=== PATIENT | female | born 1955 | race Caucasian/White ===

== ENCOUNTER 2017-10-08 00:51 | Inpatient (IN) | payer MEDICARE ==
[2017-10-08] MEDS ORDERED: METHYLPREDNISOLONE INJ 125 MG/2 ML SDV ONE (01:47)
[2017-10-08] MEDS ORDERED: ALBUTEROL SULFATE 0.083% NEB 2.5 MG/3 ML AMPUL NEB ONE ×2 (01:48→01:58)
[2017-10-08] MEDS ORDERED: MAGNESIUM SULFATE/D5W 2 GM/200 ML RTUPB IV ONE (01:48)
[2017-10-08] MEDS ORDERED: METHYLPREDNISOLONE INJ 125 MG/2 ML SDV IV ONE (01:51)
[2017-10-08] MEDS ORDERED: IPRATROPIUM/ALBUTEROL 0.5-2.5 MG/3 ML AMPUL NEB ONE (01:51)
--- NOTE | 2017-10-08 01:58 | ER Document Report ---
ED General - General Chief Complaint: Breathing Difficulty Stated Complaint: SHORTNESS OF BREATH Time Seen by Provider: 10/08/17 01:20 Notes: Patient is a 62-year-old female with a past medical history of asthma, no prior hospitalizations or intubations, who presents with 1 week of progressive worsening shortness of breath became much worse in the last 24 hours. Patient states she has been using her home nebulizers with only minimal improvement of her symptoms. She states any form of exertion worsens her symptoms. She states this feels very similar to prior asthma exacerbations although her at the bedside states "you have never had one this bad before". Patient does report that for the past 1 week she has had a dry, nonproductive cough and has had multiple sick contacts with viral illnesses. She has not seen a primary care doctor regarding today's concerns. TRAVEL OUTSIDE OF THE [place] IN LAST 30 DAYS: No - Related Data Allergies/Adverse Reactions: amoxicillin trihydrate [From Augmentin] Allergy (Verified 01/13/16 19:58) Potassium Clavulanate * [From Augmentin] Allergy (Verified 01/13/16 19:58) Past Medical History - General Information source: Patient - Social History Smoking Status: Current Every Day Smoker Frequency of alcohol use: None Drug Abuse: None Lives with: Spouse/Significant other Family History: Reviewed & Not Pertinent - Past Medical History Cardiac Medical History: Reports: Hx Heart Attack Pulmonary Medical History: Reports: Hx Asthma GI Medical History: Reports: Hx Gastritis Musculoskeltal Medical History: Reports Hx Arthritis, Reports Hx Musculoskeletal Deformity, Reports Hx Musculoskeletal Trauma Psychiatric Medical History: Reports: Hx Anxiety Past Surgical History: Reports: Hx Appendectomy, Hx Section - 3, Hx Cholecystectomy, Hx Gastric Bypass Surgery, Hx Orthopedic Surgery - back x4 carpal tunnel bilaterally - Immunizations Hx Diphtheria, Pertussis, Tetanus Vaccination: No Review of Systems - Review of Systems Notes: Constitutional: Negative for fever. HENT: Negative for sore throat. Eyes: Negative for visual changes. Cardiovascular: Negative for chest pain. Respiratory: Positive for shortness of breath. Gastrointestinal: Negative for abdominal pain, vomiting or diarrhea. Genitourinary: Negative for dysuria. Musculoskeletal: Negative for back pain. Skin: Negative for rash. Neurological: Negative for headaches, weakness or numbness. 10 point ROS negative except as marked above and in HPI. Physical Exam - Vital signs Vitals: Temp Pulse Resp BP Pulse Ox 97.5 F 103 H 20 136/89 H 91 L 10/08/17 01:05 10/08/17 01:05 10/08/17 01:05 10/08/17 01:05 10/08/17 01:05 Interpretation: Tachycardic, Hypoxic, Tachypneic Notes: PHYSICAL EXAMINATION: GENERAL: Appears uncomfortable, breathing with pursed lips, in moderate to severe respiratory distress HEAD: Atraumatic, normocephalic. EYES: Pupils equal round and reactive to light, extraocular movements intact, sclera anicteric, conjunctiva are normal. ENT: nares patent, oropharynx clear without exudates. Dry mucous membranes. NECK: Normal range of motion, supple without lymphadenopathy LUNGS: Diminished air movement in all lung new. Prolonged expiratory phase with associated diffuse expiratory wheezing. Patient has intercostal retractions, breathing approximately 20 breaths per minute. She is unable to speak more than 2 words a single sentence without requiring additional breath. HEART: Regular tachycardia without murmurs ABDOMEN: Soft, nontender, normoactive bowel sounds. No guarding, no rebound. No masses appreciated. EXTREMITIES: Normal range of motion, no pitting or edema. No cyanosis. NEUROLOGICAL: No focal neurological deficits. Moves all extremities spontaneously and on command. PSYCH: Somewhat anxious SKIN: Warm, Dry, normal turgor, no rashes or lesions noted. Course - Re-evaluation Re-evalutation: 10/08/17 01:54 Patient presents in moderate respiratory distress, only able to speak in 2 word sentences, extremely tight on lung examination with prolonged expiratory wheezing in all lung new. She is hypoxemic requiring segmental oxygen on initial presentation. She was immediately placed on continuous nebulizers, and IV is established magnesium and steroids were administered. A stat portable chest x-ray will be obtained. She has been placed on continuous cardiac catheterization technician. Patient is critically ill require frequent reassessments. 10/08/17 02:48 Patient's work of breathing is somewhat improved as she continues on nebulizers at this time. She remains tight with prolonged expiratory wheezing in all lung new. She is now able to speak at least 3-4 word sentences. Continues to be oxygen dependent. Will continue to monitor closely 10/08/17 03:27 Patient states that she is beginning to feel even worse, her saturations continue to hang in the low 90s to upper 80s on 2-3 L by nasal cannula. Work of breathing remains elevated. At this point will transition to BiPAP with continuous in-line nebulizers. 10/08/17 03:35 I discussed this case with Dr. Murillo who is agreed to admit the patient. - Vital Signs Vital signs: Temp Pulse Resp BP Pulse Ox 97.5 F 103 H 21 H 133/92 H 95 10/08/17 01:05 10/08/17 01:05 10/08/17 02:01 10/08/17 02:01 10/08/17 02:01 - Laboratory Result Diagrams: 10/08/17 02:19 10/08/17 02:19 Laboratory results interpreted by me: 10/08/17 10/08/17 02:19 02:19 WBC 11.2 H RDW 14.4 H BUN 23 H Creatinine 0.48 L Glucose 132 H - Diagnostic Test Radiology reviewed: Image reviewed, Reports reviewed Critical Care Note - Critical Care Note Total time excluding time spent on procedures (mins): 37 Comments: Critical care time spent obtaining history from patient or surrogate, discussions with consultants, development of treatment plan with patient or surrogate, evaluation of patient's response to treatment, examination of patient , ordering and performing treatments and interventions, ordering and review of laboratory studies, re-evaluation of patient's condition, ordering and review of radiographic studies and review of old charts Discharge - Discharge Clinical Impression: Respiratory distress Asthma exacerbation Qualifiers: Asthma severity: severe Asthma persistence: persistent Qualified Code(s): J45.51 - Severe persistent asthma with (acute) exacerbation Condition: Fair Disposition: ADMITTED INPATIENT Admitting Provider: Rogelio Murillo Unit Admitted: IMCU Referrals: ZULMA ESTRADA PA-C [Primary Care Provider] - Follow up as needed
[2017-10-08] MEDS ORDERED: MAGNESIUM SULFATE/D5W 1 GM/100 ML RTUPB IV SCH (02:00)
[2017-10-08 02:36] LABS: ABSOLUTE BASOPHILS # (AUTO) 0.1 10^3/uL (0.0-0.2); ABSOLUTE EOSINOPHILS # (AUTO) 0.4 10^3/uL (0.0-0.6); ABSOLUTE LYMPHOCYTES (AUTO) 1.8 10^3/uL (0.5-4.7); ABSOLUTE MONOCYTES (AUTO) 0.8 10^3/uL (0.1-1.4); ABSOLUTE NEUT (AUTO) 8.1 10^3/uL (1.7-8.2); BASOPHILS % (AUTO) 0.7 % (0-2); EOSINOPHILS % (AUTO) 3.4 % (0-6); HEMOGLOBIN 12.1 g/dL (12.0-15.5); HGB HCT DIFFERENCE 0.3; LYMPHOCYTES % (AUTO) 16.5 % (13-45); MEAN CORPUSCULAR HEMOGLOBIN 29.6 pg (27.0-33.4); MEAN CORPUSCULAR HGB CONC 33.7 g/dL (32.0-36.0); MEAN CORPUSCULAR VOLUME 88 fl (80-97); MONOCYTES % (AUTO) 6.7 % (3-13); RED CELL DISTRIBUTION WIDTH 14.4 % (11.5-14.0); SEGMENTED NEUTROPHILS % (AUTO) 72.7 % (42-78); WHITE BLOOD COUNT 11.2 10^3/uL (4.0-10.5)
[2017-10-08 02:44] LABS: ANION GAP 15 (5-19); BLOOD UREA NITROGEN 23 mg/dL (7-20); CALCIUM 9.1 mg/dL (8.4-10.2); CARBON DIOXIDE 23 mmol/L (22-30); CHLORIDE 104 mmol/L (98-107); CREATININE RESULT 0.48 mg/dL (0.52-1.25); GLUCOSE 132 mg/dL (75-110); POTASSIUM 4.4 mmol/L (3.6-5.0); SODIUM 141.8 mmol/L (137-145)
--- NOTE | 2017-10-08 03:07 | RADIOLOGY REPORT (SQ) ---
EXAM DESCRIPTION: CHEST SINGLE VIEW COMPLETED DATE/TIME: 10/08/2017 2:54 am REASON FOR STUDY: sob COMPARISON: None. EXAM PARAMETERS: NUMBER OF VIEWS: One view. TECHNIQUE: Single frontal radiographic view of the chest acquired. RADIATION DOSE: NA LIMITATIONS: None. FINDINGS: LUNGS AND PLEURA: No opacities, masses or pneumothorax. No pleural effusion. Prominent in terstitium. MEDIASTINUM AND HILAR STRUCTURES: No masses. Contour normal. HEART AND VASCULAR STRUCTURES: Heart normal in size. Normal vasculature. BONES: No acute findings. HARDWARE: Upper abdominal clips. 10s leads along the midline of the lower thorax. OTHER: No other significant finding. IMPRESSION: No acute cardiopulmonary findings. TECHNICAL DOCUMENTATION: JOB ID: [id number] [employer]- All Rights Reserved
[2017-10-08 03:31] LABS: VENOUS BLOOD BASE EXCESS -0.9 mmol/L; VENOUS BLOOD HCO3 25.4 mmol/L (20-32); VENOUS BLOOD PCO2 48.7 mmHg (35-63); VENOUS BLOOD PH 7.34 (7.30-7.42)
[2017-10-08] MEDS ORDERED: ONDANSETRON HCL INJ/PF 4 MG/2 ML SDV IV PRN (03:34)
[2017-10-08] MEDS ORDERED: IPRATROPIUM/ALBUTEROL 0.5-2.5 MG/3 ML AMPUL NEB PRN (03:34)
[2017-10-08] MEDS ORDERED: MAG HYDROX/AL HYDROX/SIMETH SUSP 30 ML UDCUP PO PRN (03:34)
[2017-10-08] MEDS ORDERED: CHLORPHENIRAMINE MALEATE 4 MG TABLET PO ONE (03:34)
[2017-10-08] MEDS ORDERED: FLUTICASONE NASAL SPRAY 50 MCG/SPRY 120 SPRAY/16 GM NASL ONE (04:15)
--- NOTE | 2017-10-08 05:25 | PDOC H&P ---
History of Present Illness Admission Date/PCP: 10/08/17 03:46 ZULMA ESTRADA PA-C Patient complains of: Shortness of breath and wheeze History of Present Illness: RONALD CROCKETT is a 62 year old female with a past medical history of coronary artery disease, COPD, asthma, Tobacco Dependence, depression and chronic pain. Presents with 2 days of rhinorrhea and 12 hours of severe asthma exacerbation not alleviated by home medications prompting evaluation emergency room. She is unable to complete sentences without coughing and wheezing is audible at bedside. She states cold weather is a trigger of her asthma, denies chest pain nausea vomiting. She admits previous hospitalization for asthma but denies intubation and/or recent change in medication regimen. Past Medical History Cardiac Medical History: Reports: Myocardial Infarction Pulmonary Medical History: Reports: Asthma, Chronic Obstructive Pulmonary Disease (COPD) Musculoskeltal Medical History: Reports: Arthritis Psychiatric Medical History: Reports: Depression, General Anxiety Disorder, Tobacco Dependency Past Surgical History Past Surgical History: Reports: Appendectomy, Section - 3, Cholecystectomy, Gastric Bypass Surgery, Orthopedic Surgery - back x4 carpal tunnel bilaterally Social History Information Source: Patient Lives with: Spouse/Significant other Smoking Status: Current Every Day Smoker Cigarettes Packs Per Day: 1 Last Time Smoked: 45 Frequency of Alcohol Use: None Drugs: None - Advance Directive Resuscitation Status: Full Code Family History Family History: CAD, COPD Parental Family History Reviewed: Yes Children Family History Reviewed: Yes Sibling(s) Family History Reviewed.: Yes Medication/Allergy Home Medications: Famotidine [Pepcid 20 mg Tablet] 20 mg PO BID #12 tablet 08/21/15 Hydroxyzine Pamoate [Vistaril 50 mg Capsule] 50 mg PO Q6HP PRN #30 capsule 08/21 Permethrin [Elimite] 60 gm TP ONCE PRN #2 cream.gm. 08/21/15 Prednisone [Sterapred Ds] 1 pkg PO ASDIR PRN 12 Days tab.ds.pk 08/21/15 Prednisone [Deltasone 10 mg Tablet] 10 mg PO ASDIR PRN #21 tablet 01/13/16 Allergies/Adverse Reactions: amoxicillin trihydrate [From Augmentin] Allergy (Verified 01/13/16 19:58) Potassium Clavulanate * [From Augmentin] Allergy (Verified 01/13/16 19:58) Review of Systems Constitutional: PRESENT: as per HPI Eyes: ABSENT: visual disturbances Ears: ABSENT: hearing changes Nose, Mouth, and Throat: PRESENT: other - Rhinorrhea Cardiovascular: ABSENT: chest pain, dyspnea on exertion, edema, orthropnea, palpitations Respiratory: PRESENT: as per HPI, cough, dyspnea. ABSENT: sputum Gastrointestinal: ABSENT: abdominal pain, constipation, diarrhea, hematemesis, hematochezia, nausea, vomiting Genitourinary: ABSENT: dysuria, hematuria Musculoskeletal: ABSENT: joint swelling Integumentary: ABSENT: rash, wounds Neurological: ABSENT: abnormal gait, abnormal speech, confusion, dizziness, focal weakness, syncope Psychiatric: PRESENT: anxiety, depression - Grief following recent of father. ABSENT: homidical ideation, suicidal ideation Endocrine: ABSENT: cold intolerance, heat intolerance, polydipsia, polyuria Hematologic/Lymphatic: ABSENT: easy bleeding, easy bruising Physical Exam Vital Signs: Temp Pulse Resp BP Pulse Ox 97.5 F 103 H 23 H 134/79 H 96 10/08/17 01:05 10/08/17 01:05 10/08/17 04:01 10/08/17 04:00 10/08/17 04:01 General appearance: PRESENT: cooperative, severe distress, thin Head exam: PRESENT: atraumatic, normocephalic Eye exam: PRESENT: conjunctiva pink, EOMI, PERRLA. ABSENT: scleral icterus Ear exam: PRESENT: normal external ear exam Mouth exam: PRESENT: moist, tongue midline Neck exam: ABSENT: carotid bruit, JVD, lymphadenopathy, thyromegaly Respiratory exam: PRESENT: accessory muscle use, retraction, symmetrical, tachypnea, wheezes. ABSENT: rhonchi, stridor Cardiovascular exam: PRESENT: +S1, +S2, tachycardia Pulses: PRESENT: normal dorsalis pedis pul Vascular exam: PRESENT: normal capillary refill GI/Abdominal exam: PRESENT: normal bowel sounds, soft. ABSENT: distended, guarding, mass, organolmegaly, rebound, tenderness Rectal exam: PRESENT: deferred Extremities exam: PRESENT: full ROM. ABSENT: calf tenderness, clubbing, pedal edema Neurological exam: PRESENT: alert, awake, oriented to person, oriented to place , oriented to time, oriented to situation, CN II-XII grossly intact. ABSENT: motor sensory deficit Psychiatric exam: PRESENT: appropriate affect, normal mood. ABSENT: homicidal ideation, suicidal ideation Skin exam: PRESENT: dry, intact, warm. ABSENT: cyanosis, rash Results Impressions: Chest X-Ray 10/08/17 01:52 IMPRESSION: No acute cardiopulmonary findings. Assessment & Plan - Diagnosis (1) Asthma exacerbation Qualifiers: Asthma severity: severe Asthma persistence: persistent Qualified Code(s) : J45.51 - Severe persistent asthma with (acute) exacerbation Is this a current diagnosis for this admission?: Yes Plan: IMCU admission, consider ABG continue Solu-Medrol, albuterol and Atrovent. Follow-up peak flow (2) Acute bronchitis Is this a current diagnosis for this admission?: Yes Plan: Flutter valve and empiric antibiotics (3) Tobacco dependence Is this a current diagnosis for this admission?: Yes Plan: Tobacco Dependence patient received tobacco cessation counseling and offered nicotine replacement options (4) Respiratory distress Is this a current diagnosis for this admission?: Yes Plan: Secondary to #1 supplemental oxygen and BiPAP. - Time Time Spent: 30 to 50 Minutes - Inpatient Certification Medical Necessity: Need Close Monitoring Due to Risk of Patient Decompensation
[2017-10-08] MEDS ORDERED: LEVOFLOXACIN 750 MG/D5W RTU 750 MG/150 ML RTUPB IV ONE (06:00)
[2017-10-08] MEDS: HEPARIN SOD (PORCINE) 5,000 UNIT/ML 1 ML SYRINGE SUBCUT SCH ×3 (08:22→22:30)
[2017-10-08] MEDS: METHYLPREDNISOLONE INJ 125 MG/2 ML SDV IV SCH ×3 (08:22→22:30)
[2017-10-08] MEDS: LANSOPRAZOLE 30 MG TAB.RAP.DR PO SCH ×2 (08:23→17:32)
[2017-10-08] MEDS: IPRATROPIUM/ALBUTEROL 0.5-2.5 MG/3 ML AMPUL NEB SCH ×3 (09:31→19:35)
[2017-10-08] MEDS: DOCUSATE SODIUM 100 MG CAPSULE PO SCH ×2 (10:21→17:30)
[2017-10-08] MEDS: FLUTICASONE NASAL SPRAY 50 MCG/SPRY 120 SPRAY/16 GM NASL SCH ×2 (10:21→22:30)
[2017-10-08] MEDS ORDERED: INFLUENZA ADLT QUAD (36MOS+) 2017-18 VAC 0.5 ML SYR IM PRN (14:36)
[2017-10-08] MEDS: ACETAMINOPHEN 325 MG TABLET PO PRN ×2 (17:30→22:35)
--- NOTE | 2017-10-08 21:11 | EKG REPORT ---
SEVERITY:- OTHERWISE NORMAL ECG - SINUS TACHYCARDIA : Confirmed by: Maria Antonia Ruboi MD 08-Oct-2017 21:10:33
[2017-10-09] MEDS: IPRATROPIUM/ALBUTEROL 0.5-2.5 MG/3 ML AMPUL NEB SCH ×4 (02:36→20:49)
[2017-10-09] MEDS: ACETAMINOPHEN 325 MG TABLET PO PRN ×3 (04:50→16:36)
[2017-10-09] MEDS: HEPARIN SOD (PORCINE) 5,000 UNIT/ML 1 ML SYRINGE SUBCUT SCH ×3 (05:36→22:05)
[2017-10-09] MEDS: METHYLPREDNISOLONE INJ 125 MG/2 ML SDV IV SCH ×3 (05:36→22:05)
[2017-10-09] MEDS: LANSOPRAZOLE 30 MG TAB.RAP.DR PO SCH ×2 (05:36→16:37)
[2017-10-09] MEDS: FLUTICASONE NASAL SPRAY 50 MCG/SPRY 120 SPRAY/16 GM NASL SCH ×2 (09:36→22:05)
[2017-10-09] MEDS: LEVOFLOXACIN 750 MG/D5W RTU 750 MG/150 ML RTUPB IV SCH (09:36)
[2017-10-09] MEDS: DOCUSATE SODIUM 100 MG CAPSULE PO SCH ×2 (09:37→17:36)
[2017-10-09] MEDS: HYDROCODONE/ACETAMINOPHEN 5-325 MG TABLET PO PRN ×3 (11:16→23:26)
[2017-10-09] MEDS: BENZONATATE 100 MG CAPSULE PO SCH ×2 (13:44→22:05)
--- NOTE | 2017-10-09 16:04 | PDOC PROGRESS REPORT ---
Subjective Progress Note for:: 10/09/17 Subjective:: Overall, she is feeling better. She still is short of breath and wheezy. She has a nonproductive cough as well. Physical Exam Vital Signs: Temp Pulse Resp BP Pulse Ox 97.9 F 91 18 122/84 96 10/09/17 11:36 10/09/17 14:00 10/09/17 13:30 10/09/17 11:36 10/09/17 11:36 Intake & Output 10/08/17 10/09/17 10/10/17 06:59 06:59 06:59 Intake Total 10 1342 237 Output Total 0 500 Balance 10 842 237 Weight 78.1 kg 76.4 kg General appearance: PRESENT: no acute distress, cooperative, well-developed, well-nourished Head exam: PRESENT: atraumatic, normocephalic Eye exam: PRESENT: conjunctiva pink, EOMI, PERRLA. ABSENT: scleral icterus Respiratory exam: PRESENT: unlabored, wheezes. ABSENT: accessory muscle use Cardiovascular exam: PRESENT: RRR. ABSENT: diastolic murmur, rubs, systolic murmur GI/Abdominal exam: PRESENT: normal bowel sounds, soft. ABSENT: distended, guarding, mass, organolmegaly, rebound, tenderness Neurological exam: PRESENT: alert, awake, oriented to person, oriented to place , oriented to time, oriented to situation, CN II-XII grossly intact. ABSENT: motor sensory deficit Psychiatric exam: PRESENT: appropriate affect, normal mood. ABSENT: homicidal ideation, suicidal ideation Skin exam: PRESENT: dry, intact, warm. ABSENT: cyanosis, rash Results Laboratory Results: Labs- All tests 24 hr 10/09/17 11:38 POC Glucose 128 H Impressions: Chest X-Ray 10/08/17 01:52 IMPRESSION: No acute cardiopulmonary findings. Assessment & Plan - Diagnosis (1) Asthma exacerbation Qualifiers: Asthma severity: severe Asthma persistence: persistent Qualified Code(s) : J45.51 - Severe persistent asthma with (acute) exacerbation Is this a current diagnosis for this admission?: Yes Plan: She has shown improvement in the last 24 hours. Continue steroids, nebs, and oxygen. Anticipate discharge in the next 2-3 days. (2) Tobacco dependence Is this a current diagnosis for this admission?: Yes Plan: She was offered nicotine replacement. - Time Time Spent with patient: 15-24 minutes Medications reviewed and adjusted accordingly: Yes Anticipated discharge: Home - Inpatient Certification Medical Necessity: Failure to Improve With Outpatient Therapy
[2017-10-10] MEDS: IPRATROPIUM/ALBUTEROL 0.5-2.5 MG/3 ML AMPUL NEB SCH ×4 (01:53→20:51)
[2017-10-10] MEDS: HYDROCODONE/ACETAMINOPHEN 5-325 MG TABLET PO PRN ×3 (05:43→18:19)
[2017-10-10] MEDS: LANSOPRAZOLE 30 MG TAB.RAP.DR PO SCH ×2 (05:44→17:12)
[2017-10-10] MEDS: BENZONATATE 100 MG CAPSULE PO SCH ×3 (05:44→21:43)
[2017-10-10] MEDS: HEPARIN SOD (PORCINE) 5,000 UNIT/ML 1 ML SYRINGE SUBCUT SCH ×3 (05:44→21:45)
[2017-10-10] MEDS: METHYLPREDNISOLONE INJ 125 MG/2 ML SDV IV SCH ×3 (05:44→21:42)
[2017-10-10] MEDS: DOCUSATE SODIUM 100 MG CAPSULE PO SCH ×2 (09:38→17:12)
[2017-10-10] MEDS: ACETAMINOPHEN 325 MG TABLET PO PRN (09:40)
[2017-10-10] MEDS: LEVOFLOXACIN 750 MG/D5W RTU 750 MG/150 ML RTUPB IV SCH (09:41)
[2017-10-10] MEDS: FLUTICASONE NASAL SPRAY 50 MCG/SPRY 120 SPRAY/16 GM NASL SCH ×2 (09:41→21:47)
--- NOTE | 2017-10-10 14:03 | PROGRESS NOTE E ---
Progress Note NAME: RONALD CROCKETT : 1955 AGE: 62Y DATE: 10/10/2017 ROOM: 328 SUBJECTIVE: The patient is a 62-year-old female who has a past medical history of asthma, admitted with acute hypoxic respiratory failure secondary to asthma exacerbation. She is feeling better but still continued to have a cough. OBJECTIVE: GENERAL: The patient is lying in bed, not in distress. VITAL SIGNS: Temperature 97.8, heart rate 75, respiratory rate 18, blood pressure 124/67, saturation 95% room air. HEENT: Head normocephalic, atraumatic. Pupils round, reactive to light and accommodation bilaterally. Extraocular movements intact. Ears: Tympanic membranes intact bilaterally. No discharge from the ear. No discharge from the nose. NECK: Supple, no increased JVD, no thyromegaly, no lymphadenopathy. CARDIOVASCULAR: Normal S1, S2. Regular rate and rhythm. No murmur, no gallops. RESPIRATORY: Bilateral crackles and wheezing. ABDOMEN: Soft, nontender. MUSCULOSKELETAL: No edema. NEUROLOGIC: Awake, alert. SKIN: No rash. LABORATORY DATA: White blood count 11, hemoglobin 12. Sodium 140, potassium 4.4, creatinine 0.5. ASSESSMENT: 1. ASTHMA EXACERBATION. 2. TOBACCO DEPENDENCE. PLAN: We will continue oxygen, continue nebulizer. DISPOSITION: We will discharge improved 48 hours. DICTATING PHYSICIAN: WANDY LOPEZ M.D. [id number] PHY#: [id number] ID: [id number] JOB#: [id number] ACCT: [id number] cc: >
[2017-10-10] MEDS: GUAIFENESIN SYRP 200 MG/10 ML UDC PO PRN ×2 (17:12→21:47)
[2017-10-11] MEDS: HYDROCODONE/ACETAMINOPHEN 5-325 MG TABLET PO PRN ×2 (01:48→18:33)
[2017-10-11] MEDS: IPRATROPIUM/ALBUTEROL 0.5-2.5 MG/3 ML AMPUL NEB SCH ×4 (02:07→20:18)
[2017-10-11] MEDS: BENZONATATE 100 MG CAPSULE PO SCH ×3 (06:09→21:57)
[2017-10-11] MEDS: METHYLPREDNISOLONE INJ 125 MG/2 ML SDV IV SCH ×3 (06:10→21:58)
[2017-10-11] MEDS: LANSOPRAZOLE 30 MG TAB.RAP.DR PO SCH ×2 (06:10→18:34)
[2017-10-11] MEDS: HEPARIN SOD (PORCINE) 5,000 UNIT/ML 1 ML SYRINGE SUBCUT SCH ×3 (06:10→21:59)
--- NOTE | 2017-10-11 09:28 | PROGRESS NOTE E ---
Progress Note NAME: RONALD CROCKETT : 1955 AGE: 62Y DATE: 10/11/2017 ROOM: 328 SUBJECTIVE: The patient is a 62-year-old female who has a past medical history significant for asthma, admitted with acute hypoxic respiratory failure secondary to asthma exacerbation. She is feeling better and continues to have a cough. OBJECTIVE: GENERAL: The patient lying in bed comfortable. Not in distress. VITALS SIGNS: Temperature 98.1, heart rate 75, blood pressure 147/86, respiratory rate is 18, saturation is 93% on room air. HEENT: Head normocephalic, atraumatic. Pupils round and reactive to light and accommodation bilaterally. Extraocular movements intact. Ears: Tympanic membranes intact bilaterally. No discharge from the ears. No discharge from the nose. NECK: Supple. No increased JVD. No thyromegaly. No lymphadenopathy. CARDIOVASCULAR: Normal S1, S2. Regular rate and rhythm. No murmur. No gallop. RESPIRATORY: Bilateral wheezing. ABDOMEN: Soft and nontender. MUSCULOSKELETAL: No edema. NEUROLOGIC: Awake and alert. LABORATORY: White blood count 11.2, hemoglobin 12. Sodium 141, potassium 4.4, creatinine 0.4. ASSESSMENT: 1. ASTHMA EXACERBATION. 2. ACUTE HYPOXIC RESPIRATORY FAILURE. 3. TOBACCO DEPENDENCE. PLAN: Continue current treatment with nebulizer and steroids. Patient continues to have wheezing. MEDICAL NECESSITY: Patient is still wheezing and had difficulty breathing with minimal activity. We will keep her another day. DICTATING PHYSICIAN: WANDY LOPEZ M.D. [id number] PHY#: [id number] ID: [id number] JOB#: [id number] ACCT: [id number] cc: >
[2017-10-11] MEDS: LEVOFLOXACIN 750 MG TABLET PO SCH (10:14)
[2017-10-11] MEDS: DOCUSATE SODIUM 100 MG CAPSULE PO SCH ×2 (10:15→18:34)
[2017-10-11] MEDS: FLUTICASONE NASAL SPRAY 50 MCG/SPRY 120 SPRAY/16 GM NASL SCH ×2 (10:15→21:58)
[2017-10-11] MEDS: GUAIFENESIN SYRP 200 MG/10 ML UDC PO PRN (10:15)
[2017-10-12] MEDS: HYDROCODONE/ACETAMINOPHEN 5-325 MG TABLET PO PRN ×2 (00:57→08:33)
[2017-10-12] MEDS: IPRATROPIUM/ALBUTEROL 0.5-2.5 MG/3 ML AMPUL NEB SCH ×2 (02:00→08:34)
[2017-10-12] MEDS: LANSOPRAZOLE 30 MG TAB.RAP.DR PO SCH (06:43)
[2017-10-12] MEDS: METHYLPREDNISOLONE INJ 125 MG/2 ML SDV IV SCH (06:43)
[2017-10-12] MEDS: BENZONATATE 100 MG CAPSULE PO SCH (06:44)
[2017-10-12] MEDS: HEPARIN SOD (PORCINE) 5,000 UNIT/ML 1 ML SYRINGE SUBCUT SCH (06:44)
[2017-10-12 08:24] VITALS: BP 144/87
[2017-10-12] MEDS: FLUTICASONE NASAL SPRAY 50 MCG/SPRY 120 SPRAY/16 GM NASL SCH (08:43)
[2017-10-12] MEDS: LEVOFLOXACIN 750 MG TABLET PO SCH (08:43)
[2017-10-12] MEDS: DOCUSATE SODIUM 100 MG CAPSULE PO SCH (08:43)
--- NOTE | 2017-10-12 09:28 | DISCHARGE SUMMARY E ---
Discharge Summary NAME: RONALD CROCKETT : 1955 AGE: 62Y ADMITTED: 10/08/2017 DISCHARGED: 10/12/2017 ADMISSION DIAGNOSES: 1. Asthma exacerbation. 2. Acute bronchitis. 3. Tobacco dependence. 4. Respiratory distress. DISCHARGE DIAGNOSES: 1. Asthma exacerbation, resolved. 2. Bronchitis. 3. Tobacco dependence. 4. Respiratory distress, resolved. HOSPITAL COURSE: The patient is a pleasant 62-year-old female who had a past medical history of asthma and she also had tobacco abuse. The patient has depression. She was admitted with 2 days of rhinorrhea prior to the admission and when she was admitted to the hospital was in respiratory distress and she was wheezing, wheezing not audible at bedside. The patient received inhalers and magnesium sulfate and she improved and admitted to the floor. On the floor, she was on Solu-Medrol IV and antibiotics, Levaquin 750 mg p.o. daily. Today, she is doing much better and she is not wheezing. She is feeling better and less short of breath. The patient is doing much better today and she is not requiring any oxygen and she is saturating in mid-90 in room air and she is stable to be discharged home. PHYSICAL EXAMINATION UPON DISCHARGE: GENERAL: Patient lying in bed, comfortable, not in distress. VITAL SIGNS: Temperature 98.4, heart rate 74, respiratory rate 16, blood pressure 136/89. HEENT: Head: Normocephalic, atraumatic. Pupils round, reactive to light and accommodation bilaterally. Extraocular movements intact. Ears: Tympanic membranes intact bilateral. No discharge from the ears. No discharge from the nose. NECK: Supple. No increased JVD. No thyromegaly. No lymphadenopathy. CARDIOVASCULAR: Normal S1 and S2. RESPIRATORY: Lungs are clear. ABDOMEN: Soft. MUSCULOSKELETAL: No edema. NEUROLOGICAL EXAM: Awake, alert. SKIN: No rash. LABORATORY: White blood count 11.2, hemoglobin 12.1, hematocrit 36. Sodium 141, potassium 4.1, creatinine 0.5. DISCHARGE INSTRUCTIONS: Discharge patient home. DIET: Low-salt diet. ACTIVITY: As tolerated. MEDICATIONS: 1. Calcium and vitamin D 1 tablet twice a day. 2. Albuterol inhaler. 3. Multivitamin once a day. 4. Paxil 10 mg daily. 5. Gabapentin 100 mg twice a day. 6. Prednisone 40 mg tapering. 7. Levaquin 750 mg p.o. daily. TIME SPENT: I spent 35 minutes. DICTATING PHYSICIAN: WANDY LOPEZ M.D. [id number] PHY#: [id number] ID: [id number] JOB#: [id number] ACCT: [id number] cc:Marisa CABA M.D. >
[2017-10-12] MEDS ORDERED: PREDNISONE 20 MG TABLET PO SCH (10:00)
== END 2017-10-12 09:42 | disposition home or self-care (01) | DRG 202 ==
LOC: ER 00:51 → EH 03:46 → 3S 05:49
PROVIDERS: ADMIT Internal Medicine; ATTEND Internal Medicine
PROC: 5A09357 Assistance with Respiratory Ventilation, Less than 24 Consecutive Hours, Continuous Positive Airway Pressure (ICD-10-PCS; principal; 2017-10-08)
PROC: 3E0F73Z Introduction of Anti-inflammatory into Respiratory Tract, Via Natural or Artificial Opening (ICD-10-PCS; 2017-10-08)
DX: J45.51 Severe persistent asthma with (acute) exacerbation (principal); J44.0 Chronic obstructive pulmonary disease with (acute) lower respiratory infection; J20.9 Acute bronchitis, unspecified; I25.10 Atherosclerotic heart disease of native coronary artery without angina pectoris; G89.29 Other chronic pain; R06.03 Acute respiratory distress; R09.02 Hypoxemia; F32.9 Major depressive disorder, single episode, unspecified; M19.90 Unspecified osteoarthritis, unspecified site; F41.1 Generalized anxiety disorder; F17.210 Nicotine dependence, cigarettes, uncomplicated; Z90.49 Acquired absence of other specified parts of digestive tract; Z98.84 Bariatric surgery status; Z82.49 Family history of ischemic heart disease and other diseases of the circulatory system; Z88.0 Allergy status to penicillin; Z88.8 Allergy status to other drugs, medicaments and biological substances; I25.2 Old myocardial infarction
CPT/HCPCS: 36415; 71010; 80048; 82803; 82962; 83880; 84484; 85025; 87040; 93005; 93010; 94640; 94660; 99291; J1644; J1956; J2930; J3475; J7620

== ENCOUNTER 2018-01-20 23:00 | Inpatient (IN) | payer MEDICARE ==
[2018-01-20] MEDS ORDERED: IPRATROPIUM/ALBUTEROL 0.5-2.5 MG/3 ML AMPUL NEB ONE (23:25)
[2018-01-20] MEDS ORDERED: ALBUTEROL SULFATE 0.083% NEB 2.5 MG/3 ML AMPUL NEB ONE (23:25)
--- NOTE | 2018-01-20 23:29 | ER Document Report ---
ED General - General Stated Complaint: DIFFICULTY BREATHING Time Seen by Provider: 01/20/18 23:21 Notes: Patient is a 62-year-old female who presents with complaint of asthma exacerbation. Patient does smoke as well. She says for the last 10 days she has had some difficulty breathing. She is placed on prednisone on January 15 by her primary care doctor. She continued to worsen despite this. Tonight her breathing got really bad and therefore she called any months. When ambulance arrived she was 80% on room air. She does not use oxygen at home. She has been admitted for asthma exacerbations in the past. She has one BiPAP in the past. She denies any fevers. No vomiting. No diarrhea. She has never been on a ventilator. No other complaints at this time. In the a.m. once she received Solu-Medrol as well as 2 DuoNeb treatments. She denies any chest pain. TRAVEL OUTSIDE OF THE [place] IN LAST 30 DAYS: No - Related Data Allergies/Adverse Reactions: amoxicillin trihydrate [From Augmentin] Allergy (Verified 01/13/16 19:58) Potassium Clavulanate * [From Augmentin] Allergy (Verified 01/13/16 19:58) Past Medical History - Social History Smoking Status: Current Every Day Smoker Frequency of alcohol use: None Drug Abuse: None Family History: CAD, COPD - Past Medical History Cardiac Medical History: Reports: Hx Heart Attack Pulmonary Medical History: Reports: Hx Asthma, Hx COPD Renal/ Medical History: Denies: Hx Peritoneal Dialysis GI Medical History: Reports: Hx Gastritis Musculoskeltal Medical History: Reports Hx Arthritis, Reports Hx Musculoskeletal Deformity, Reports Hx Musculoskeletal Trauma Psychiatric Medical History: Reports: Hx Anxiety, Hx Depression Past Surgical History: Reports: Hx Appendectomy, Hx Section - 3, Hx Cholecystectomy, Hx Gastric Bypass Surgery, Hx Orthopedic Surgery - back x4 carpal tunnel bilaterally - Immunizations Hx Diphtheria, Pertussis, Tetanus Vaccination: No Review of Systems - Review of Systems Notes: My Normal Review Basic REVIEW OF SYSTEMS: CONSTITUTIONAL : Denies fever, chills, or sweats. Denies recent illness. EENT: Denies eye, ear, throat, or mouth pain or symptoms. Denies nasal or sinus congestion. CARDIOVASCULAR: Denies chest pain. RESPIRATORY: Occulta breathing and wheezing. GASTROINTESTINAL: Denies abdominal pain. Denies nausea, vomiting, or diarrhea. MUSCULOSKELETAL: Denies neck or back pain or joint pain or swelling. SKIN: Denies rash or skin lesions. NEUROLOGICAL: Denies altered mental status or loss of consciousness. Denies headache. Denies weakness or paralysis or loss of use of either side. Denies problems with gait or speech. Denies sensory or motor loss.SYCHIATRIC: Denies anxiety or stress or depression. ALL OTHER SYSTEMS REVIEWED AND NEGATIVE. Physical Exam - Vital signs Vitals: Resp Pulse Ox 33 H 97 01/20/18 23:08 01/20/18 23:08 - Notes Notes: General Appearance: Well nourished, alert, cooperative, moderate acute distress , no obvious discomfort. Vitals: reviewed, See vital signs table. Head: no swelling or tenderness to the head Eyes: PERRL, EOMI, Conjuctiva clear Mouth: No decreasd moisture Throat: No tonsillar inflammation, No airway obstruction, No lymphadenopathy Neck: Supple, no neck tenderness, No thyromegaly Lungs:diffuse wheezing, No rales, diffuse rhonci, No accessory muscle use, fair air exchange bilaterally. Heart: Tachycardic rate, Regular rythm, No murmur, no rub Abdomen: Normal BS, soft, No rigidity, No abdominal tenderness, No guarding, no rebound, no abdominal masses, no organomegaly Extremities: strength 5/5 in all extremities, good pulses in all extremities, no swelling or tenderness in the extremities, no edema. Skin: warm, dry, appropriate color, no rash Neuro: speech clear, oriented x 3, normal affect, responds appropriately to questions. Course - Re-evaluation Re-evalutation: 01/21/18 00:44 Reevaluation patient is feeling much improved on the BiPAP. Her lung new are still very tight and wheezing. Her tachypnea has improved. Her blood work does show that she has an elevated CO2. Her pH is 97.32 so she is fairly well compensated. I feel the patient needs admission being that she still has very poor lung auscultation and is requiring BiPAP. Patient is agreeable to this. I will contact Dr. Murillo about admission. 01/21/18 00:[address] Murillo who agrees to admit the patient. Dictation of this chart was performed using voice recognition software; therefore, there may be some unintended grammatical errors. - Vital Signs Vital signs: Temp Pulse Resp BP Pulse Ox 19 104/70 98 01/21/18 00:01 01/21/18 00:01 01/21/18 00:01 - Laboratory Result Diagrams: 01/20/18 23:30 01/20/18 23:30 Laboratory results interpreted by me: 01/20/18 01/20/18 01/20/18 23:30 23:30 23:30 WBC 11.1 H MCH 26.6 L RDW 15.7 H Plt Count 471 H VBG pCO2 69.4 H* VBG HCO3 34.8 H Chloride 97 L Carbon Dioxide 32 H Glucose 114 H - EKG Interpretation by Me Additional EKG results interpreted by me: 01/21/18 00:27 EKG is reviewed and interpreted by me. EKG shows sinus rhythm with a rate of [address] segment elevation or depression. No ischemic T-wave inversions. TN interval, QRS duration, QTc intervals are within normal range. Old EKG for comparison is from October 08, 2017. Discharge - Discharge Clinical Impression: Tobacco dependence Asthma exacerbation Qualifiers: Asthma severity: unspecified severity Asthma persistence: unspecified Qualified Code(s): J45.901 - Unspecified asthma with (acute) exacerbation Condition: Stable Disposition: ADMITTED INPATIENT Admitting Provider: Hospitalist Unit Admitted: Telemetry
[2018-01-20 23:48] LABS: ABSOLUTE BASOPHILS # (AUTO) 0.1 10^3/uL (0.0-0.2); ABSOLUTE EOSINOPHILS # (AUTO) 0.1 10^3/uL (0.0-0.6); ABSOLUTE LYMPHOCYTES (AUTO) 3.4 10^3/uL (0.5-4.7); ABSOLUTE MONOCYTES (AUTO) 0.9 10^3/uL (0.1-1.4); ABSOLUTE NEUT (AUTO) 6.7 10^3/uL (1.7-8.2); BASOPHILS % (AUTO) 0.5 % (0-2); EOSINOPHILS % (AUTO) 0.8 % (0-6); HEMATOCRIT 38.8 % (36.0-47.0); HEMOGLOBIN 12.4 g/dL (12.0-15.5); LYMPHOCYTES % (AUTO) 30.1 % (13-45); MEAN CORPUSCULAR HEMOGLOBIN 26.6 pg (27.0-33.4); MEAN CORPUSCULAR VOLUME 83 fl (80-97); MONOCYTES % (AUTO) 8.4 % (3-13); PLATELET COUNT 471 10^3/uL (150-450); RED BLOOD COUNT 4.67 10^6/uL (3.72-5.28); RED CELL DISTRIBUTION WIDTH 15.7 % (11.5-14.0); SEGMENTED NEUTROPHILS % (AUTO) 60.2 % (42-78); TOTAL CELLS COUNTED % (AUTO) 100 %; WHITE BLOOD COUNT 11.1 10^3/uL (4.0-10.5)
[2018-01-20] MEDS: MAGNESIUM SULFATE/D5W 1 GM/100 ML RTUPB IV SCH ×2 (23:51→23:59)
--- NOTE | 2018-01-20 23:52 | RADIOLOGY REPORT (SQ) ---
EXAM DESCRIPTION: CHEST SINGLE VIEW COMPLETED DATE/TIME: 01/20/2018 11:42 pm REASON FOR STUDY: dyspnea COMPARISON: 10/08/2017 EXAM PARAMETERS: NUMBER OF VIEWS: One view. TECHNIQUE: Single frontal radiographic view of the chest acquired. RADIATION DOSE: NA LIMITATIONS: None. FINDINGS: LUNGS AND PLEURA: No acute opacities, masses or pneumothorax. No pleural effusion. MEDIASTINUM AND HILAR STRUCTURES: Stable. HEART AND VASCULAR STRUCTURES: Heart normal in size. Normal vasculature. BONES: No acute findings. HARDWARE: Thoracic stimulator. OTHER: No other significant finding. IMPRESSION: NO ACUTE RADIOGRAPHIC FINDING IN THE CHEST. TECHNICAL DOCUMENTATION: JOB ID: [id number] [id number] 2010 [employer]- All Rights Reserved Reading location - IP/workstation name: [email or web address]
[2018-01-20 23:54] LABS: VENOUS BLOOD BASE EXCESS 6.4 mmol/L; VENOUS BLOOD HCO3 34.8 mmol/L (20-32); VENOUS BLOOD PH 7.32 (7.30-7.42)
[2018-01-20 23:59] LABS: ALANINE AMINOTRANSFERASE 51 U/L (9-52); ALBUMIN 4.7 g/dL (3.5-5.0); ALKALINE PHOSPHATASE 116 U/L (38-126); ANION GAP 11 (5-19); ASPARTATE AMINO TRANSFERASE 23 U/L (14-36); BILIRUBIN,DIRECT 0.2 mg/dL (0.0-0.4); BILIRUBIN,TOTAL 0.2 mg/dL (0.2-1.3); BLOOD UREA NITROGEN 15 mg/dL (7-20); CARBON DIOXIDE 32 mmol/L (22-30); CHLORIDE 97 mmol/L (98-107); GLUCOSE 114 mg/dL (75-110); POTASSIUM 4.7 mmol/L (3.6-5.0); SODIUM 139.7 mmol/L (137-145); TOTAL PROTEIN 7.2 g/dL (6.3-8.2)
[2018-01-21 00:02] LABS: VENOUS BLOOD PCO2 69.4 mmHg (35-63)
[2018-01-21] MEDS ORDERED: HYDROCODONE/ACETAMINOPHEN 7.5-325 MG TABLET PO ONE (00:42)
[2018-01-21] MEDS ORDERED: ALBUTEROL SULFATE 0.083% NEB 2.5 MG/3 ML AMPUL NEB ONE (00:42)
[2018-01-21] MEDS ORDERED: IPRATROPIUM/ALBUTEROL 0.5-2.5 MG/3 ML AMPUL NEB PRN (00:57)
[2018-01-21] MEDS ORDERED: GUAIFENESIN SYRP 200 MG/10 ML UDC PO PRN (00:57)
[2018-01-21] MEDS ORDERED: ACETAMINOPHEN 325 MG TABLET PO PRN (00:57)
[2018-01-21] MEDS ORDERED: LACTULOSE SYRUP 20 GM/30 ML UDCUP PO ONE (01:00)
[2018-01-21] MEDS ORDERED: LEVOFLOXACIN 750 MG/D5W RTU 750 MG/150 ML RTUPB IV ONE (02:00)
[2018-01-21] MEDS: IPRATROPIUM/ALBUTEROL 0.5-2.5 MG/3 ML AMPUL NEB SCH ×4 (02:19→19:49)
[2018-01-21 04:20] LABS: HEMATOCRIT 39.2 % (36.0-47.0); HEMOGLOBIN 12.5 g/dL (12.0-15.5); MEAN CORPUSCULAR HEMOGLOBIN 26.2 pg (27.0-33.4); MEAN CORPUSCULAR HGB CONC 31.8 g/dL (32.0-36.0); MEAN CORPUSCULAR VOLUME 82 fl (80-97); PLATELET COUNT 446 10^3/uL (150-450); RED BLOOD COUNT 4.76 10^6/uL (3.72-5.28); WHITE BLOOD COUNT 11.8 10^3/uL (4.0-10.5)
[2018-01-21 04:33] LABS: ANION GAP 11 (5-19); BLOOD UREA NITROGEN 18 mg/dL (7-20); CARBON DIOXIDE 30 mmol/L (22-30); CHLORIDE 100 mmol/L (98-107); GLUCOSE 164 mg/dL (75-110)
--- NOTE | 2018-01-21 04:36 | PDOC H&P ---
History of Present Illness Admission Date/PCP: 01/21/18 01:25 Patient complains of: Shortness of breath History of Present Illness: RONALD CROCKETT is a 62 year old female with a past medical history of coronary artery disease, COPD, asthma, tobacco dependence, depression and chronic pain. Patient presents with 4 days of rhinorrhea, and 8 hours of severe exacerbation of wheeze not alleviated by home regiment of nebulizers. She is unable to complete full sentences without paroxysms of cough and wheezing is audible from bedside. She is placed on BiPAP, oxygen and Solu-Medrol referred to the hospitalist for admission. Patient admits to uncontrolled GERD, triggers of asthma being cold weather, but also continues to smoke. Past Medical History Cardiac Medical History: Reports: Myocardial Infarction Pulmonary Medical History: Reports: Asthma, Chronic Obstructive Pulmonary Disease (COPD) GI Medical History: Reports: Gastroesophageal Reflux Disease Musculoskeltal Medical History: Reports: Arthritis Psychiatric Medical History: Reports: Depression, Tobacco Dependency Past Surgical History Past Surgical History: Reports: Appendectomy, Section - 3, Cholecystectomy, Gastric Bypass Surgery, Orthopedic Surgery - back x4 carpal tunnel bilaterally Social History Information Source: Patient Smoking Status: Current Every Day Smoker Frequency of Alcohol Use: None Hx Recreational Drug Use: No Drugs: None Hx Prescription Drug Abuse: No - Advance Directive Resuscitation Status: Full Code Family History Family History: CAD, COPD Parental Family History Reviewed: Yes Children Family History Reviewed: Yes Sibling(s) Family History Reviewed.: Yes Medication/Allergy Home Medications: Albuterol Sulfate [Albuterol Sulfate 2.5mg/3 mL] 3 ml NEB [id number] PRN 10/08/17 Calcium Carb/Vitamin D3/Vit K1 [Viactiv Soft Chew] 1 tab PO BID 10/08/17 Gabapentin [Neurontin 100 mg Capsule] 100 mg PO Q8 10/08/17 Glycopyrrolate/Formoterol Fum [Bevespi Aerosphere Inhaler] 2 puff IH Q12 Paroxetine HCl [Paxil] 10 mg PO QAM 10/08/17 Pediatric Multivitamin No.49 [Flintstones Gummies] 1 tab PO BID 10/08/17 Levofloxacin [Levaquin 750 mg Tablet] 750 mg PO DAILY #7 tablet 10/12/17 Prednisone [Deltasone 20 mg Tablet] 20 mg PO DAILY #20 tablet 10/12/17 Allergies/Adverse Reactions: amoxicillin trihydrate [From Augmentin] Allergy (Verified 01/13/16 19:58) Potassium Clavulanate * [From Augmentin] Allergy (Verified 01/13/16 19:58) Review of Systems Constitutional: PRESENT: as per HPI, fatigue. ABSENT: fever(s) Eyes: ABSENT: visual disturbances Ears: ABSENT: hearing changes Cardiovascular: PRESENT: dyspnea on exertion. ABSENT: chest pain, edema, orthropnea, palpitations Respiratory: PRESENT: as per HPI, cough, dyspnea Gastrointestinal: PRESENT: as per HPI, constipation, heartburn. ABSENT: abdominal pain, diarrhea, hematemesis, hematochezia, nausea, vomiting Genitourinary: ABSENT: dysuria, hematuria Musculoskeletal: ABSENT: joint swelling Integumentary: ABSENT: rash, wounds Neurological: ABSENT: abnormal gait, abnormal speech, confusion, dizziness, focal weakness, syncope Psychiatric: ABSENT: anxiety, depression, homidical ideation, suicidal ideation Endocrine: ABSENT: cold intolerance, heat intolerance, polydipsia, polyuria Hematologic/Lymphatic: ABSENT: easy bleeding, easy bruising Physical Exam Vital Signs: Temp Pulse Resp BP Pulse Ox 98.3 F 115 H 18 104/70 93 01/20/18 23:45 01/21/18 02:20 01/21/18 02:20 01/21/18 00:01 01/21/18 02:20 Intake & Output 01/19/18 01/20/18 01/21/18 11:59 11:59 11:59 Weight 83.915 kg General appearance: PRESENT: disheveled, severe distress, thin Head exam: PRESENT: atraumatic, normocephalic Eye exam: PRESENT: conjunctiva pink, EOMI, PERRLA. ABSENT: scleral icterus Ear exam: PRESENT: normal external ear exam Mouth exam: PRESENT: moist, tongue midline Neck exam: ABSENT: carotid bruit, JVD, lymphadenopathy, thyromegaly Respiratory exam: PRESENT: accessory muscle use, crackles, decreased breath sounds, prolonged expiratory phas, rales, retraction, rhonchi, symmetrical, tachypnea Cardiovascular exam: PRESENT: RRR. ABSENT: diastolic murmur, rubs, systolic murmur Pulses: PRESENT: normal dorsalis pedis pul Vascular exam: PRESENT: normal capillary refill GI/Abdominal exam: PRESENT: normal bowel sounds, soft. ABSENT: distended, guarding, mass, organolmegaly, rebound, tenderness Rectal exam: PRESENT: deferred Extremities exam: PRESENT: full ROM. ABSENT: calf tenderness, clubbing, pedal edema Neurological exam: PRESENT: alert, awake, oriented to person, oriented to place , oriented to time, oriented to situation, CN II-XII grossly intact. ABSENT: motor sensory deficit Psychiatric exam: PRESENT: appropriate affect, normal mood. ABSENT: homicidal ideation, suicidal ideation Skin exam: PRESENT: dry, intact, warm. ABSENT: cyanosis, rash Results Laboratory Results: 01/21/18 04:10 Seg Neutrophils % Not Reportable Lymphocytes % Not Reportable Monocytes % Not Reportable Eosinophils % Not Reportable Basophils % Not Reportable Absolute Neutrophils Not Reportable Absolute Lymphocytes Not Reportable Absolute Monocytes Not Reportable Absolute Eosinophils Not Reportable Absolute Basophils Not Reportable Impressions: Chest X-Ray 01/20/18 23:27 IMPRESSION: NO ACUTE RADIOGRAPHIC FINDING IN THE CHEST. Assessment & Plan - Diagnosis (1) COPD exacerbation Is this a current diagnosis for this admission?: Yes Plan: Secondary to tobacco, cold exposure and uncontrolled GERD. Supplemental oxygen , prednisone, flutter valve and incentive spirometry, albuterol and Atrovent. Consider empiric antibiotics (2) GERD (gastroesophageal reflux disease) Is this a current diagnosis for this admission?: Yes Plan: Previously unknown new diagnosis, Pepcid twice daily and education (3) Asthma exacerbation Qualifiers: Asthma severity: unspecified severity Asthma persistence: unspecified Qualified Code(s): J45.901 - Unspecified asthma with (acute) exacerbation Is this a current diagnosis for this admission?: Yes Plan: Please see #1 (4) Tobacco dependence Is this a current diagnosis for this admission?: Yes Plan: Tobacco Dependence patient received tobacco cessation counseling and offered nicotine replacement options (5) Acute bronchitis Is this a current diagnosis for this admission?: Yes Plan: Prednisone, flutter valve and empiric antibiotics. - Time Time Spent: 30 to 50 Minutes - Inpatient Certification Medical Necessity: Need Close Monitoring Due to Risk of Patient Decompensation
[2018-01-21 04:39] LABS: ABSOLUTE LYMPHOCYTES# (MANUAL) 0.7 10^3/uL (0.5-4.7); ABSOLUTE MONOCYTES # (MANUAL) 0.1 10^3/uL (0.1-1.4); BASOPHILS % (MANUAL) 0 % (0-2); EOSINOPHILS % (MANUAL) 0 % (0-6); LYMPHOCYTES % (MANUAL) 6 % (13-45); MONOCYTES % (MANUAL) 1 % (3-13); SEGMENTED NEUTROPHILS % (MAN) 93 % (42-78); TOTAL CELLS COUNTED 100
[2018-01-21 04:40] LABS: TOXIC GRANULATION 1+
[2018-01-21 04:41] LABS: ANISOCYTOSIS 1+; OVALOCYTES SLIGHT; PLATELET CLUMPS PRESENT; PLATELET COMMENT ADEQUATE; PLATELET GIANT PRESENT; PLATELET LARGE PRESENT; POIKILOCYTOSIS SLIGHT; SCHISTOCYTES SLIGHT; TEAR DROP CELLS SLIGHT
[2018-01-21] MEDS ORDERED: LANSOPRAZOLE 30 MG TAB.RAP.DR PO ONE (05:00)
[2018-01-21] MEDS: HEPARIN SOD (PORCINE) 5,000 UNIT/ML 1 ML SYRINGE SUBCUT SCH ×3 (05:34→22:26)
[2018-01-21] MEDS: GUAIFENESIN 600 MG TABLET.SA PO SCH ×2 (09:07→22:27)
[2018-01-21] MEDS: PREDNISONE 20 MG TABLET PO SCH (09:08)
--- NOTE | 2018-01-21 09:13 | EKG REPORT ---
SEVERITY:- BORDERLINE ECG - SINUS RHYTHM PROBABLE LEFT ATRIAL ABNORMALITY BORDERLINE T ABNORMALITIES, ANT-LAT LEADS : Confirmed by: Tonya Escamilla 21-Jan-2018 09:13:07
[2018-01-21] MEDS: HYDROCODONE/ACETAMINOPHEN 7.5-325 MG TABLET PO PRN ×2 (10:10→18:58)
--- NOTE | 2018-01-21 12:02 | Physician Advisory Note ---
Physician Advisor ProgressNote .: Pursuant to the plan for [facility], I have reviewed the medical record for this patient. Physician Advisor Statement: Beautiful documentation in H&P of increased work of breathing & resp distress even after much improvement (O2 sats mid-high 90s but requiring O2 & Bipap to achieve this), severe hypoxemia for EMS per ED dr note (80% on RA for EMS, usually on no O2). Please consider documenting, if you agree: 1. "Acute Hypoxemic Respiratory Failure" (evidence as above) 2. "Chronic Hypercarbic Respiratory Failure" (pH WNL w/high pCO2, compensated bicarb) Status = appropriate for Inpt. CK
--- NOTE | 2018-01-21 18:43 | Progress Note ---
Provider Note Provider Note: Patient seen, examined, and chart reviewed. Will continue with current treatment. Will reevaluate in a.m.
[2018-01-21] MEDS: LANSOPRAZOLE 30 MG TAB.RAP.DR PO SCH (18:58)
[2018-01-21] MEDS: LEVOFLOXACIN 750 MG/D5W RTU 750 MG/150 ML RTUPB IV SCH (22:27)
[2018-01-22] MEDS: IPRATROPIUM/ALBUTEROL 0.5-2.5 MG/3 ML AMPUL NEB SCH ×4 (01:26→19:55)
[2018-01-22 05:11] LABS: ABSOLUTE BASOPHILS # (AUTO) 0.1 10^3/uL (0.0-0.2); ABSOLUTE EOSINOPHILS # (AUTO) 0.1 10^3/uL (0.0-0.6); ABSOLUTE LYMPHOCYTES (AUTO) 3.3 10^3/uL (0.5-4.7); ABSOLUTE MONOCYTES (AUTO) 0.9 10^3/uL (0.1-1.4); ABSOLUTE NEUT (AUTO) 7.1 10^3/uL (1.7-8.2); BASOPHILS % (AUTO) 0.8 % (0-2); EOSINOPHILS % (AUTO) 0.8 % (0-6); HEMATOCRIT 33.4 % (36.0-47.0); HEMOGLOBIN 10.5 g/dL (12.0-15.5); LYMPHOCYTES % (AUTO) 28.5 % (13-45); MEAN CORPUSCULAR HEMOGLOBIN 25.9 pg (27.0-33.4); MEAN CORPUSCULAR HGB CONC 31.4 g/dL (32.0-36.0); MEAN CORPUSCULAR VOLUME 82 fl (80-97); MONOCYTES % (AUTO) 7.7 % (3-13); PLATELET COUNT 327 10^3/uL (150-450); RED BLOOD COUNT 4.06 10^6/uL (3.72-5.28); RED CELL DISTRIBUTION WIDTH 15.5 % (11.5-14.0); SEGMENTED NEUTROPHILS % (AUTO) 62.2 % (42-78); TOTAL CELLS COUNTED % (AUTO) 100 %; WHITE BLOOD COUNT 11.4 10^3/uL (4.0-10.5)
[2018-01-22 05:27] LABS: ANION GAP 11 (5-19); BLOOD UREA NITROGEN 20 mg/dL (7-20); CALCIUM 9.3 mg/dL (8.4-10.2); CARBON DIOXIDE 29 mmol/L (22-30); CHLORIDE 98 mmol/L (98-107); GLUCOSE 84 mg/dL (75-110); SODIUM 138.3 mmol/L (137-145)
[2018-01-22] MEDS: HEPARIN SOD (PORCINE) 5,000 UNIT/ML 1 ML SYRINGE SUBCUT SCH ×3 (05:53→21:22)
[2018-01-22] MEDS: LANSOPRAZOLE 30 MG TAB.RAP.DR PO SCH ×2 (05:53→16:47)
[2018-01-22] MEDS: HYDROCODONE/ACETAMINOPHEN 7.5-325 MG TABLET PO PRN ×3 (08:40→21:22)
[2018-01-22] MEDS: PREDNISONE 20 MG TABLET PO SCH (09:47)
[2018-01-22] MEDS: GUAIFENESIN 600 MG TABLET.SA PO SCH ×2 (09:47→21:22)
--- NOTE | 2018-01-22 15:33 | PDOC PROGRESS REPORT ---
Subjective Progress Note for:: 01/22/18 Subjective:: Pt states that she is feeling ok. Reason For Visit: COPD EXACERBATION CHRONIC PAIN TOBACCO Physical Exam Vital Signs: Temp Pulse Resp BP Pulse Ox 98.4 F 98 20 136/98 H 90 L 01/22/18 12:00 01/22/18 14:13 01/22/18 14:13 01/22/18 12:00 01/22/18 14:13 Intake & Output 01/21/18 01/22/18 01/23/18 06:59 06:59 06:59 Intake Total 552 Balance 552 Weight 83.915 kg 83.1 kg General appearance: PRESENT: mild distress, well-developed, well-nourished Head exam: PRESENT: atraumatic, normocephalic Eye exam: PRESENT: conjunctiva pink, EOMI. ABSENT: scleral icterus Ear exam: PRESENT: normal external ear exam Mouth exam: PRESENT: moist, tongue midline Neck exam: ABSENT: carotid bruit, JVD, lymphadenopathy, thyromegaly Respiratory exam: PRESENT: other - Prolonged expiratory phase, positive for diffuse wheezing Cardiovascular exam: PRESENT: RRR. ABSENT: diastolic murmur, rubs, systolic murmur Pulses: PRESENT: normal dorsalis pedis pul Vascular exam: PRESENT: normal capillary refill GI/Abdominal exam: PRESENT: normal bowel sounds, soft. ABSENT: distended, guarding, mass, organolmegaly, rebound, tenderness Rectal exam: PRESENT: deferred Extremities exam: PRESENT: full ROM. ABSENT: calf tenderness, clubbing, pedal edema Neurological exam: PRESENT: alert, awake, oriented to person, oriented to place , oriented to time, oriented to situation, CN II-XII grossly intact. ABSENT: motor sensory deficit Psychiatric exam: PRESENT: appropriate affect, normal mood. ABSENT: homicidal ideation, suicidal ideation Skin exam: PRESENT: dry, intact, warm. ABSENT: cyanosis, rash Results Laboratory Results: 01/22/18 04:23 01/22/18 04:23 01/22/18 01/22/18 04:23 04:23 WBC 11.4 H RBC 4.06 Hgb 10.5 L Hct 33.4 L MCV 82 MCH 25.9 L MCHC 31.4 L RDW 15.5 H Plt Count 327 Seg Neutrophils % 62.2 Lymphocytes % 28.5 Monocytes % 7.7 Eosinophils % 0.8 Basophils % 0.8 Absolute Neutrophils 7.1 Absolute Lymphocytes 3.3 Absolute Monocytes 0.9 Absolute Eosinophils 0.1 Absolute Basophils 0.1 Sodium 138.3 Potassium 4.0 Chloride 98 Carbon Dioxide 29 Anion Gap 11 BUN 20 Creatinine 0.56 Est GFR ( Amer) > 60 Est GFR (Non-Af Amer) > 60 Glucose 84 Calcium 9.3 Impressions: Chest X-Ray 01/20/18 23:27 IMPRESSION: NO ACUTE RADIOGRAPHIC FINDING IN THE CHEST. Assessment & Plan - Diagnosis (1) Acute and chronic respiratory failure Qualifiers: Respiratory failure complication: hypoxia and hypercapnia Qualified Code(s) : J96.21 - Acute and chronic respiratory failure with hypoxia; J96.22 - Acute and chronic respiratory failure with hypercapnia; J96.22 - Acute and chronic respiratory failure with hypercapnia; J96.22 - Acute and chronic respiratory failure with hypercapnia Is this a current diagnosis for this admission?: Yes Plan: Acute COPD exacerbation: Will continue current treatment. (2) Anemia Is this a current diagnosis for this admission?: No Plan: Will check anemia workup. (3) COPD exacerbation Is this a current diagnosis for this admission?: Yes Plan: Will continue current treatment. (4) GERD (gastroesophageal reflux disease) Is this a current diagnosis for this admission?: Yes Plan: Continue PPI (5) Tobacco dependence Is this a current diagnosis for this admission?: Yes Plan: PPI (6) DVT prophylaxis Is this a current diagnosis for this admission?: Yes Plan: Heparin - Time Time Spent with patient: 15-24 minutes
[2018-01-22] MEDS: METHYLPREDNISOLONE INJ 125 MG/2 ML SDV IV SCH (21:22)
[2018-01-22] MEDS: LEVOFLOXACIN 750 MG/D5W RTU 750 MG/150 ML RTUPB IV SCH (21:22)
[2018-01-23] MEDS: IPRATROPIUM/ALBUTEROL 0.5-2.5 MG/3 ML AMPUL NEB SCH ×4 (01:44→20:19)
[2018-01-23] MEDS: HEPARIN SOD (PORCINE) 5,000 UNIT/ML 1 ML SYRINGE SUBCUT SCH ×3 (05:48→22:08)
[2018-01-23] MEDS: METHYLPREDNISOLONE INJ 125 MG/2 ML SDV IV SCH ×3 (05:48→22:07)
[2018-01-23] MEDS: HYDROCODONE/ACETAMINOPHEN 7.5-325 MG TABLET PO PRN ×4 (05:48→23:56)
[2018-01-23] MEDS: LANSOPRAZOLE 30 MG TAB.RAP.DR PO SCH ×2 (05:51→16:04)
[2018-01-23 06:16] LABS: FERRITIN 7.53 ng/mL (11.1-264.0)
[2018-01-23 06:46] LABS: FOLATE 8.33 ng/mL (>2.76)
[2018-01-23 06:58] LABS: ABSOLUTE RETICS # 0.067 10^6/uL (0.028-0.122); RETICULOCYTE COUNT (AUTO) 1.52 % (0.66-2.85)
[2018-01-23] MEDS: GUAIFENESIN 600 MG TABLET.SA PO SCH ×2 (10:15→22:07)
--- NOTE | 2018-01-23 17:07 | PDOC PROGRESS REPORT ---
Subjective Progress Note for:: 01/23/18 Subjective:: States her breathing is improving. Patient states that she has not been wearing her oxygen because she feels like she is able to move air better. Patient's family member was present and states that patient gets sick like this all the time. Patient states that she does use medications at home however due to the season changing she usually has respiratory issues during this time. Reason For Visit: COPD EXACERBATION CHRONIC PAIN TOBACCO Physical Exam Vital Signs: Temp Pulse Resp BP Pulse Ox 98.5 F 102 H 20 137/70 H 93 01/23/18 16:08 01/23/18 16:08 01/23/18 16:08 01/23/18 16:08 01/23/18 16:08 Intake & Output 01/22/18 01/23/18 01/24/18 06:59 06:59 06:59 Intake Total 552 2096 Output Total 950 Balance 552 1146 Weight 83.1 kg 82.7 kg General appearance: PRESENT: no acute distress, well-developed, well-nourished Head exam: PRESENT: atraumatic, normocephalic Eye exam: PRESENT: conjunctiva pink, EOMI. ABSENT: scleral icterus Ear exam: PRESENT: normal external ear exam Mouth exam: PRESENT: moist, tongue midline Neck exam: ABSENT: carotid bruit, JVD, lymphadenopathy, thyromegaly Respiratory exam: PRESENT: accessory muscle use, prolonged expiratory phas, retraction, rhonchi, wheezes. ABSENT: rales Cardiovascular exam: PRESENT: RRR. ABSENT: diastolic murmur, rubs, systolic murmur Pulses: PRESENT: normal dorsalis pedis pul Vascular exam: PRESENT: normal capillary refill GI/Abdominal exam: PRESENT: normal bowel sounds, soft. ABSENT: distended, guarding, mass, organolmegaly, rebound, tenderness Rectal exam: PRESENT: deferred Extremities exam: PRESENT: full ROM. ABSENT: calf tenderness, clubbing, pedal edema Musculoskeletal exam: PRESENT: full ROM Neurological exam: PRESENT: alert, awake, oriented to person, oriented to place , oriented to time, oriented to situation, CN II-XII grossly intact. ABSENT: motor sensory deficit Psychiatric exam: PRESENT: appropriate affect, normal mood. ABSENT: homicidal ideation, suicidal ideation Skin exam: PRESENT: dry, intact, warm. ABSENT: cyanosis, rash Results Laboratory Results: 01/22/18 04:23 01/22/18 04:23 01/23/18 01/23/18 01/23/18 04:29 04:29 06:46 Retic Count (auto) Cancelled 1.52 Absolute Retic Cancelled 0.067 Iron 30.0 L TIBC 410 % Saturation 7 Ferritin 7.53 L Vitamin B12 286.0 Folate 8.33 Impressions: Chest X-Ray 01/20/18 23:27 IMPRESSION: NO ACUTE RADIOGRAPHIC FINDING IN THE CHEST. Assessment & Plan - Diagnosis (1) Acute and chronic respiratory failure Qualifiers: Respiratory failure complication: hypoxia and hypercapnia Qualified Code(s) : J96.21 - Acute and chronic respiratory failure with hypoxia; J96.22 - Acute and chronic respiratory failure with hypercapnia; J96.22 - Acute and chronic respiratory failure with hypercapnia; J96.22 - Acute and chronic respiratory failure with hypercapnia Is this a current diagnosis for this admission?: Yes Plan: Acute COPD exacerbation: Will continue current treatment. (2) Anemia Is this a current diagnosis for this admission?: Yes Plan: Iron deficiency anemia: We will place patient on iron replacement. (3) COPD exacerbation Is this a current diagnosis for this admission?: Yes Plan: Will continue current treatment. (4) GERD (gastroesophageal reflux disease) Is this a current diagnosis for this admission?: Yes Plan: Continue PPI (5) Tobacco dependence Is this a current diagnosis for this admission?: Yes Plan: PPI (6) DVT prophylaxis Is this a current diagnosis for this admission?: Yes Plan: Heparin - Time Time Spent with patient: 15-24 minutes
[2018-01-23] MEDS: FERROUS SULFATE 325 MG TABLET PO SCH (17:53)
[2018-01-23] MEDS: LEVOFLOXACIN 750 MG/D5W RTU 750 MG/150 ML RTUPB IV SCH (22:07)
[2018-01-24] MEDS: IPRATROPIUM/ALBUTEROL 0.5-2.5 MG/3 ML AMPUL NEB SCH ×4 (01:25→20:13)
[2018-01-24] MEDS: METHYLPREDNISOLONE INJ 125 MG/2 ML SDV IV SCH ×2 (05:53→22:20)
[2018-01-24] MEDS: HEPARIN SOD (PORCINE) 5,000 UNIT/ML 1 ML SYRINGE SUBCUT SCH ×3 (05:53→22:20)
[2018-01-24] MEDS: LANSOPRAZOLE 30 MG TAB.RAP.DR PO SCH ×2 (05:53→17:15)
[2018-01-24] MEDS: HYDROCODONE/ACETAMINOPHEN 7.5-325 MG TABLET PO PRN ×3 (05:54→18:22)
[2018-01-24 07:05] LABS: ABSOLUTE LYMPHOCYTES (AUTO) 0.9 10^3/uL (0.5-4.7); ABSOLUTE MONOCYTES (AUTO) 0.6 10^3/uL (0.1-1.4); ABSOLUTE NEUT (AUTO) 11.3 10^3/uL (1.7-8.2); BASOPHILS % (AUTO) 0.2 % (0-2); EOSINOPHILS % (AUTO) 0.1 % (0-6); HEMATOCRIT 36.7 % (36.0-47.0); HEMOGLOBIN 11.8 g/dL (12.0-15.5); LYMPHOCYTES % (AUTO) 7.3 % (13-45); MEAN CORPUSCULAR HEMOGLOBIN 26.4 pg (27.0-33.4); MEAN CORPUSCULAR VOLUME 83 fl (80-97); MONOCYTES % (AUTO) 4.6 % (3-13); PLATELET COUNT 378 10^3/uL (150-450); RED BLOOD COUNT 4.45 10^6/uL (3.72-5.28); RED CELL DISTRIBUTION WIDTH 15.9 % (11.5-14.0); SEGMENTED NEUTROPHILS % (AUTO) 87.8 % (42-78); TOTAL CELLS COUNTED % (AUTO) 100 %; WHITE BLOOD COUNT 12.9 10^3/uL (4.0-10.5)
[2018-01-24 07:32] LABS: ALANINE AMINOTRANSFERASE 34 U/L (9-52); ALBUMIN 3.9 g/dL (3.5-5.0); ALKALINE PHOSPHATASE 86 U/L (38-126); ANION GAP 10 (5-19); ASPARTATE AMINO TRANSFERASE 26 U/L (14-36); BILIRUBIN,DIRECT 0.4 mg/dL (0.0-0.4); BILIRUBIN,TOTAL 0.4 mg/dL (0.2-1.3); BLOOD UREA NITROGEN 19 mg/dL (7-20); CALCIUM 10.1 mg/dL (8.4-10.2); CARBON DIOXIDE 27 mmol/L (22-30); CHLORIDE 103 mmol/L (98-107); GLUCOSE 142 mg/dL (75-110); POTASSIUM 4.5 mmol/L (3.6-5.0); SODIUM 139.6 mmol/L (137-145); TOTAL PROTEIN 6.5 g/dL (6.3-8.2)
[2018-01-24] MEDS: FERROUS SULFATE 325 MG TABLET PO SCH ×2 (10:44→18:16)
[2018-01-24] MEDS: GUAIFENESIN 600 MG TABLET.SA PO SCH ×2 (10:44→22:20)
--- NOTE | 2018-01-24 12:24 | PDOC PROGRESS REPORT ---
Subjective Progress Note for:: 01/24/18 Subjective:: She states her breathing is doing much better but she is having some chest tightness. Patient states that when she has had her flareups in the past she has never had chest tightness that lasted this long. Patient then stated that she is having some back pain and direct my hand to where she is having reproducible pain. Reason For Visit: COPD EXACERBATION CHRONIC PAIN TOBACCO Physical Exam Vital Signs: Temp Pulse Resp BP Pulse Ox 98.0 F 105 H 18 129/67 H 92 01/24/18 07:29 01/24/18 07:48 01/24/18 07:48 01/24/18 07:29 01/24/18 07:48 Intake & Output 01/23/18 01/24/18 01/25/18 06:59 06:59 06:59 Intake Total 2096 3286 Output Total 950 Balance 1146 3286 Weight 82.7 kg 83.3 kg General appearance: PRESENT: no acute distress, well-developed, well-nourished Head exam: PRESENT: atraumatic, normocephalic Eye exam: PRESENT: conjunctiva pink, EOMI. ABSENT: scleral icterus Ear exam: PRESENT: normal external ear exam Mouth exam: PRESENT: moist, tongue midline Neck exam: PRESENT: carotid bruit Respiratory exam: PRESENT: accessory muscle use, decreased breath sounds, prolonged expiratory phas, wheezes, other - But patient is not wheezing as severely as the day before. patient with nasal cannula in place Pulses: PRESENT: normal dorsalis pedis pul Vascular exam: PRESENT: normal capillary refill GI/Abdominal exam: PRESENT: normal bowel sounds, soft. ABSENT: distended, guarding, mass, organolmegaly, rebound, tenderness Rectal exam: PRESENT: deferred Extremities exam: PRESENT: full ROM. ABSENT: calf tenderness, clubbing, pedal edema Neurological exam: PRESENT: alert, awake, oriented to person, oriented to place , oriented to time, oriented to situation, CN II-XII grossly intact. ABSENT: motor sensory deficit Psychiatric exam: PRESENT: appropriate affect, normal mood. ABSENT: homicidal ideation, suicidal ideation Skin exam: PRESENT: dry, intact, warm. ABSENT: cyanosis, rash Results Laboratory Results: 01/24/18 06:56 01/24/18 06:56 01/23/18 01/24/18 01/24/18 04:29 06:56 06:56 WBC 12.9 H RBC 4.45 Hgb 11.8 L Hct 36.7 MCV 83 MCH 26.4 L MCHC 32.0 RDW 15.9 H Plt Count 378 Seg Neutrophils % 87.8 H Lymphocytes % 7.3 L Monocytes % 4.6 Eosinophils % 0.1 Basophils % 0.2 Absolute Neutrophils 11.3 H Absolute Lymphocytes 0.9 Absolute Monocytes 0.6 Absolute Eosinophils 0.0 Absolute Basophils 0.0 Sodium 139.6 Potassium 4.5 Chloride 103 Carbon Dioxide 27 Anion Gap 10 BUN 19 Creatinine 0.51 L Est GFR ( Amer) > 60 Est GFR (Non-Af Amer) > 60 Glucose 142 H Calcium 10.1 Magnesium 1.9 Transferrin 310 Total Bilirubin 0.4 AST 26 ALT 34 Alkaline Phosphatase 86 Total Protein 6.5 Albumin 3.9 Impressions: Chest X-Ray 01/20/18 23:27 IMPRESSION: NO ACUTE RADIOGRAPHIC FINDING IN THE CHEST. Assessment & Plan - Diagnosis (1) Acute and chronic respiratory failure Qualifiers: Respiratory failure complication: hypoxia and hypercapnia Qualified Code(s) : J96.21 - Acute and chronic respiratory failure with hypoxia; J96.22 - Acute and chronic respiratory failure with hypercapnia; J96.22 - Acute and chronic respiratory failure with hypercapnia; J96.22 - Acute and chronic respiratory failure with hypercapnia Is this a current diagnosis for this admission?: Yes Plan: Acute COPD exacerbation: We will continue Levaquin and duo nebs every 6 hours. Will decrease steroids to every 12. (2) Anemia Is this a current diagnosis for this admission?: Yes Plan: Iron deficiency anemia: We will continue iron replacement. Will check occult stool (3) COPD exacerbation Is this a current diagnosis for this admission?: Yes Plan: Taper steroids to every 12 hours. Will continue breathing treatments and antibiotics. (4) GERD (gastroesophageal reflux disease) Is this a current diagnosis for this admission?: Yes Plan: Continue PPI (5) Tobacco dependence Is this a current diagnosis for this admission?: Yes Plan: Encourage patient to discontinue using tobacco products. (6) DVT prophylaxis Is this a current diagnosis for this admission?: Yes Plan: Heparin - Time Time Spent with patient: 15-24 minutes
[2018-01-24] MEDS: LEVOFLOXACIN 750 MG TABLET PO SCH (22:20)
[2018-01-25] MEDS: HYDROCODONE/ACETAMINOPHEN 7.5-325 MG TABLET PO PRN ×4 (00:14→18:25)
[2018-01-25] MEDS: IPRATROPIUM/ALBUTEROL 0.5-2.5 MG/3 ML AMPUL NEB SCH ×4 (02:28→20:03)
[2018-01-25] MEDS: HEPARIN SOD (PORCINE) 5,000 UNIT/ML 1 ML SYRINGE SUBCUT SCH ×3 (06:14→21:46)
[2018-01-25] MEDS: LANSOPRAZOLE 30 MG TAB.RAP.DR PO SCH ×2 (06:15→17:21)
[2018-01-25] MEDS: METHYLPREDNISOLONE INJ 125 MG/2 ML SDV IV SCH ×2 (09:07→21:45)
[2018-01-25] MEDS: GUAIFENESIN 600 MG TABLET.SA PO SCH ×2 (09:07→21:45)
[2018-01-25] MEDS: FERROUS SULFATE 325 MG TABLET PO SCH ×2 (09:07→18:23)
--- NOTE | 2018-01-25 14:54 | PDOC PROGRESS REPORT ---
Subjective Progress Note for:: 01/25/18 Subjective:: Patient states that her breathing has improved. Patient reports that she is using BiPAP at night. Reason For Visit: COPD EXACERBATION CHRONIC PAIN TOBACCO Physical Exam Vital Signs: Temp Pulse Resp BP Pulse Ox 98.5 F 86 16 106/68 96 01/25/18 11:43 01/25/18 11:43 01/25/18 11:43 01/25/18 11:43 01/25/18 11:43 Intake & Output 01/24/18 01/25/18 01/26/18 06:59 06:59 07:59 Intake Total 3286 862 Output Total 1400 Balance 3286 -538 Weight 83.3 kg 83.3 kg General appearance: PRESENT: no acute distress, well-developed, well-nourished Head exam: PRESENT: atraumatic, normocephalic Eye exam: PRESENT: conjunctiva pink, EOMI. ABSENT: scleral icterus Ear exam: PRESENT: normal external ear exam Mouth exam: PRESENT: moist, tongue midline Neck exam: ABSENT: carotid bruit, JVD, lymphadenopathy, thyromegaly Respiratory exam: PRESENT: accessory muscle use, decreased breath sounds, prolonged expiratory phas, wheezes Cardiovascular exam: PRESENT: RRR. ABSENT: diastolic murmur, rubs, systolic murmur Pulses: PRESENT: normal dorsalis pedis pul Vascular exam: PRESENT: normal capillary refill GI/Abdominal exam: PRESENT: normal bowel sounds, soft. ABSENT: distended, guarding, mass, organolmegaly, rebound, tenderness Rectal exam: PRESENT: deferred Extremities exam: PRESENT: full ROM. ABSENT: calf tenderness, clubbing, pedal edema Musculoskeletal exam: PRESENT: full ROM Neurological exam: PRESENT: alert, awake, oriented to person, oriented to place , oriented to time, oriented to situation, CN II-XII grossly intact. ABSENT: motor sensory deficit Psychiatric exam: PRESENT: appropriate affect, normal mood. ABSENT: homicidal ideation, suicidal ideation Skin exam: PRESENT: dry, intact, warm. ABSENT: cyanosis, rash Results Laboratory Results: 01/24/18 06:56 01/24/18 06:56 Impressions: Chest X-Ray 01/20/18 23:27 IMPRESSION: NO ACUTE RADIOGRAPHIC FINDING IN THE CHEST. Assessment & Plan - Diagnosis (1) Acute and chronic respiratory failure Qualifiers: Respiratory failure complication: hypoxia and hypercapnia Qualified Code(s) : J96.21 - Acute and chronic respiratory failure with hypoxia; J96.22 - Acute and chronic respiratory failure with hypercapnia; J96.22 - Acute and chronic respiratory failure with hypercapnia; J96.22 - Acute and chronic respiratory failure with hypercapnia Is this a current diagnosis for this admission?: Yes Plan: Acute COPD exacerbation: We will continue with current treatment of Levaquin, duo nebs every 6 hours and steroids every 12 hours. (2) Anemia Is this a current diagnosis for this admission?: Yes Plan: Iron deficiency anemia: We will continue iron replacement. (3) COPD exacerbation Is this a current diagnosis for this admission?: Yes Plan: We will continue steroids, breathing treatments every 12 hours and antibiotics. (4) GERD (gastroesophageal reflux disease) Is this a current diagnosis for this admission?: Yes Plan: Continue PPI (5) Tobacco dependence Is this a current diagnosis for this admission?: Yes Plan: Encourage patient to discontinue using tobacco products. (6) DVT prophylaxis Is this a current diagnosis for this admission?: Yes Plan: Heparin - Time Time Spent with patient: 15-24 minutes
[2018-01-25] MEDS: LEVOFLOXACIN 750 MG TABLET PO SCH (21:44)
[2018-01-26] MEDS: HYDROCODONE/ACETAMINOPHEN 7.5-325 MG TABLET PO PRN ×4 (00:27→19:25)
[2018-01-26] MEDS: LANSOPRAZOLE 30 MG TAB.RAP.DR PO SCH ×2 (06:11→17:19)
[2018-01-26] MEDS: HEPARIN SOD (PORCINE) 5,000 UNIT/ML 1 ML SYRINGE SUBCUT SCH ×3 (06:11→21:33)
[2018-01-26] MEDS: IPRATROPIUM/ALBUTEROL 0.5-2.5 MG/3 ML AMPUL NEB SCH ×3 (08:37→20:16)
[2018-01-26] MEDS: METHYLPREDNISOLONE INJ 125 MG/2 ML SDV IV SCH ×2 (11:10→21:33)
[2018-01-26] MEDS: FERROUS SULFATE 325 MG TABLET PO SCH ×2 (11:10→17:19)
[2018-01-26] MEDS: GUAIFENESIN 600 MG TABLET.SA PO SCH ×2 (11:10→21:32)
--- NOTE | 2018-01-26 14:32 | PDOC PROGRESS REPORT ---
Subjective Progress Note for:: 01/26/18 Subjective:: Pt continues to states that she is short of breath. Pt states that she does not want to wear oxygen (NC). Pt states that she is having chest discomfort. Reason For Visit: COPD EXACERBATION CHRONIC PAIN TOBACCO Physical Exam Vital Signs: Temp Pulse Resp BP Pulse Ox 98.3 F 82 24 H 105/63 98 01/26/18 13:00 01/26/18 13:00 01/26/18 13:00 01/26/18 13:00 01/26/18 13:00 Intake & Output 01/25/18 01/26/18 01/27/18 05:59 06:59 06:59 Intake Total Output Total Balance Weight General appearance: PRESENT: no acute distress, well-developed, well-nourished Head exam: PRESENT: atraumatic, normocephalic Eye exam: PRESENT: conjunctiva pink, EOMI. ABSENT: scleral icterus Ear exam: PRESENT: normal external ear exam Mouth exam: PRESENT: moist, tongue midline Neck exam: ABSENT: carotid bruit, JVD, lymphadenopathy, thyromegaly Respiratory exam: PRESENT: decreased breath sounds, prolonged expiratory phas, wheezes Cardiovascular exam: PRESENT: RRR. ABSENT: diastolic murmur, rubs, systolic murmur Pulses: PRESENT: normal dorsalis pedis pul Vascular exam: PRESENT: normal capillary refill GI/Abdominal exam: PRESENT: normal bowel sounds, soft. ABSENT: distended, guarding, mass, organolmegaly, rebound, tenderness Rectal exam: PRESENT: deferred Extremities exam: PRESENT: full ROM. ABSENT: calf tenderness, clubbing, pedal edema Musculoskeletal exam: PRESENT: full ROM, other - + left sided back pain and pectoralis tenderness. Neurological exam: PRESENT: alert, awake, oriented to person, oriented to place , oriented to time, oriented to situation, CN II-XII grossly intact. ABSENT: motor sensory deficit Psychiatric exam: PRESENT: appropriate affect, normal mood. ABSENT: homicidal ideation, suicidal ideation Skin exam: PRESENT: abrasion Results Laboratory Results: 01/24/18 06:56 01/24/18 06:56 Impressions: Chest X-Ray 01/20/18 23:27 IMPRESSION: NO ACUTE RADIOGRAPHIC FINDING IN THE CHEST. Assessment & Plan - Diagnosis (1) Acute and chronic respiratory failure Qualifiers: Respiratory failure complication: hypoxia and hypercapnia Qualified Code(s) : J96.21 - Acute and chronic respiratory failure with hypoxia; J96.22 - Acute and chronic respiratory failure with hypercapnia; J96.22 - Acute and chronic respiratory failure with hypercapnia; J96.22 - Acute and chronic respiratory failure with hypercapnia Is this a current diagnosis for this admission?: Yes (2) Anemia Is this a current diagnosis for this admission?: Yes (3) COPD exacerbation Is this a current diagnosis for this admission?: Yes (4) GERD (gastroesophageal reflux disease) Is this a current diagnosis for this admission?: Yes (5) Tobacco dependence Is this a current diagnosis for this admission?: Yes (6) Musculoskeletal chest pain Is this a current diagnosis for this admission?: Yes Plan: Will consult Cardiology. Patient with T-wave abnormalities seen anterior jose -lateral leads however not much different from patient's prior EKG done 2016. (7) DVT prophylaxis Is this a current diagnosis for this admission?: Yes Plan: Heparin - Time Time Spent with patient: 25-34 minutes
--- NOTE | 2018-01-26 16:45 | PDOC CONSULTATION ---
Consultation Consult Date: 01/26/18 Attending physician:: NATHALY HOPSON Consult reason:: Chest pain History of Present Illness Admission Date/PCP: 01/21/18 01:25 Patient complains of: Chest pain History of Present Illness: RONALD CROCKETT is a 62 year old female with a past medical history of coronary artery disease, COPD, asthma, tobacco dependence, depression and chronic pain. Patient presents with 4 days of rhinorrhea, and 8 hours of severe exacerbation of wheeze not alleviated by home regiment of nebulizers. She is unable to complete full sentences without paroxysms of cough and wheezing is audible from bedside. She is placed on BiPAP, oxygen and Solu-Medrol referred to the hospitalist for admission. Patient admits to uncontrolled GERD, triggers of asthma being cold weather, but also continues to smoke. Patient complained of chest tightness which is just not going away. I was therefore asked to evaluate patient. Patient claims that this is from her asthma but review of chart shows that she has a history of coronary artery disease. Patient claims that she never had any cardiac evaluation on the stress test. Patient does describe history of significant asthma. Past Medical History Cardiac Medical History: Reports: Myocardial Infarction Pulmonary Medical History: Reports: Asthma, Chronic Obstructive Pulmonary Disease (COPD) GI Medical History: Reports: Gastroesophageal Reflux Disease Musculoskeltal Medical History: Reports: Arthritis Psychiatric Medical History: Reports: Depression, Tobacco Dependency Past Surgical History Past Surgical History: Reports: Appendectomy, Section - 3, Cholecystectomy, Gastric Bypass Surgery, Orthopedic Surgery - back x4 carpal tunnel bilaterally Social History Information Source: Patient Smoking Status: Current Every Day Smoker Cigarettes Packs Per Day: 0.5 Number of Years Smokin Frequency of Alcohol Use: Rare Hx Recreational Drug Use: No Drugs: None Hx Prescription Drug Abuse: No - Advance Directive Resuscitation Status: Full Code Surrogate healthcare decision maker:: Patient's daughter at the surrogate decision-maker Family History Family History: CAD, COPD Parental Family History Reviewed: Yes Children Family History Reviewed: Yes Sibling(s) Family History Reviewed.: Yes Medication/Allergy Home Medications: Acetaminophen [Tylenol 325 mg Tablet] 650 mg PO Q4HP PRN tablet 01/26/18 Aspirin [Aspirin 81 mg Chewable Tablet] 324 mg PO DAILY tab.chew 01/26/18 Atorvastatin Calcium [Lipitor 80 mg Tablet] 80 mg PO QHS tablet 01/26/18 Ferrous Sulfate [Feosol 325 mg Tablet] 325 mg PO BIDPCBS tablet 01/26/18 Hydrocodone/Acetaminophen [Lindsay 7.5-325 mg Tablet] 1 tab PO Q6HP PRN tablet Ipratropium/Albuterol Sulfate [Duoneb 3 ml Ampul] 3 ml NEB [id number] PRN vial.neb 01/26/18 Ipratropium/Albuterol Sulfate [Duoneb 3 ml Ampul] 3 ml NEB RTQ6 [email or web address] Lansoprazole [Prevacid 30 mg Odt Tablet] 30 mg PO BID@0600,1700 tab.rap. 10/05 Levofloxacin [Levaquin 750 mg Tablet] 750 mg PO QHS tablet 01/26/18 Normal Saline [Saline Flush 2.5 ml Monoject Prefil Syrin] 2.5 ml IV Q8 disp.syrin 01/26/18 Allergies/Adverse Reactions: amoxicillin trihydrate [From Augmentin] Allergy (Verified 01/13/16 19:58) Potassium Clavulanate * [From Augmentin] Allergy (Verified 01/13/16 19:58) Review of Systems Review of Systems: Please see history of present illness and past medical history as wall. Constitutional: No fever or chills reported. Head : No recent chronic headaches, recent head injury. Eyes: No recent eye pain, diplopia, redness, discharge, acute visual changes. Ears: No recent chronic ear pain, acute hearing loss, ear discharge. Oral cavity: No recent ulcerations, bleeding, oral cavity discomfort. Neck: No recent acute neck pain reported. Hematologic: No recent easy bruising or bleeding or hematologic malignancy reported. Lymphatic: No recent lymphatic malignancy, chronic lymphadenopathy reported yet Cardiovascular system review: See history of present illness. Respiratory system review: History of chronic asthma and COPD, hemoptysis, blood clots in the lungs reported. Shortness of breath on exertion Gastrointestinal system review: Negative for any recent acute or chronic abdominal pain, hematemesis, melena, recent change in bowel habits. Genitourinary system review: No recent acute or chronic hematuria, flank pain, UTI etc. reported. Skin system review: Negative for any recent abnormal bruising, no rash, no pruritus reported. Neurologic: No prior history of strokes, mini strokes, seizure disorder. Psychologic: No history of major psychosis or major depression reported. Musculoskeletal: Minor aches and pains reported. No acute joint swelling reported. Endocrine: No recent polyuria, polydipsia, recent heat or cold intolerance. Physical Exam Vital Signs: Temp Pulse Resp BP Pulse Ox 98.3 F 90 20 105/63 92 01/26/18 13:00 01/26/18 14:00 01/26/18 13:31 01/26/18 13:00 01/26/18 13:31 Intake & Output 01/25/18 01/26/18 01/27/18 05:59 06:59 06:59 Intake Total Output Total Balance Weight Exam: GENERAL: well-nourished and in no acute distress. Alert and oriented x3 HEAD: Atraumatic, normocephalic. EYES: Pupils equal round and reactive to light, extraocular movements intact, sclera anicteric, conjunctiva are normal. ENT: TMs normal, nares patent, oropharynx clear without exudates. Moist mucous membranes. No oral ulcerations or bleeding gums noted NECK: supple without lymphadenopathy. Trachea is central. No cervical or axillary lymphadenopathy noted. Carotids are 2+, JVD WNL LUNGS: Respiration seems nonlabored, no significant accessory muscle action noted. Bilateral wheezing noted. CHEST: Palpation of the chest wall shows no significant chest wall tenderness. No other significant abnormalities noted. HEART: [place] [employer], No PSH, 1/6 SAI aortic area, 1/6 schreiber systolic murmur mitral area, no rubs, no gallops. ABDOMEN: Soft, no significant tenderness appreciated, normoactive bowel sounds. No guarding, no rebound. No rigidity noted . No masses appreciated. EXTREMITIES: Pedal pulses are 1-2+, no calf tenderness noted. No clubbing or cyanosis.trace to 1+ pedal edema noted NEUROLOGICAL: Focused neurological exam showed no significant neurologic deficit. Normal speech, no focal weakness appreciated. PSYCH: Normal mood, normal affect. Judgment and insight within normal limits. SKIN: No significant ecchymosis, skin is noted to be warm. MUSCULOSKELETAL EXAM: No significant acute joint swelling noted. Results Laboratory Results: 01/24/18 06:56 01/24/18 06:56 EKG Comments: From earlier this admission showed sinus rhythm with sinus tachycardia but no acute ST-T wave changes are noted. Impressions: Chest X-Ray 01/20/18 23:27 IMPRESSION: NO ACUTE RADIOGRAPHIC FINDING IN THE CHEST. Assessment & Plan - Diagnosis (1) Chest pain Qualifiers: Chest pain type: unspecified Qualified Code(s): R07.9 - Chest pain, unspecified Is this a current diagnosis for this admission?: Yes (2) Acute and chronic respiratory failure Qualifiers: Respiratory failure complication: hypoxia and hypercapnia Qualified Code(s) : J96.21 - Acute and chronic respiratory failure with hypoxia; J96.22 - Acute and chronic respiratory failure with hypercapnia; J96.22 - Acute and chronic respiratory failure with hypercapnia; J96.22 - Acute and chronic respiratory failure with hypercapnia Is this a current diagnosis for this admission?: Yes (3) Anemia Qualifiers: Anemia type: unspecified type Qualified Code(s): D64.9 - Anemia, unspecified Is this a current diagnosis for this admission?: Yes (4) GERD (gastroesophageal reflux disease) Qualifiers: Esophagitis presence: esophagitis presence not specified Qualified Code(s) : K21.9 - Gastro-esophageal reflux disease without esophagitis Is this a current diagnosis for this admission?: Yes (5) Tobacco dependence Is this a current diagnosis for this admission?: Yes - Notes Notes: Chest pain: Patient has significant cardiac risk factors. At this point will obtain a stat EKG, cycle cardiac enzymes. If acute ST-T wave changes noted or troponin I significantly elevated, consider tertiary care transfer for heart catheterization. Acute on chronic respiratory failure: This is a significant problem. Continue oxygenation and bronchodilator as well as antibiotic therapy. Anemia: Patient noted to have low hemoglobin and also a low iron level. May need further evaluation. Gastroesophageal reflux: Continue double dose proton pump inhibitor. Tobacco abuse: Patient has been advised to quit smoking. Addendum: EKG shows symmetrical T wave inversion consistent with ischemia. Troponin I subsequently came back positive for NM. Rec, transfer to Tertiary care for heart cath. - Time Time Spent: 30 to 50 Minutes - CODE STATUS was discussed, patient remains full code. Surrogate decision-maker unchanged. Multiple medical problems were addressed. More than 50% of the time spent coordinating care, discussing management plans with involved caregivers. Management plans discussed with involved personnels. Medical decision making was of moderate to high complexity , patient's has multiple comorbidities. Medications reviewed and adjusted accordingly: Yes
[2018-01-26] MEDS ORDERED: HEPARIN SODIUM,PORCINE/D5W 25,000 UNIT/250 ML RTUINJ IV PRN (17:02)
[2018-01-26] MEDS ORDERED: ASPIRIN 81 MG TABLET, CHEWABLE PO ONE (17:03)
[2018-01-26] MEDS ORDERED: ATORVASTATIN CALCIUM 80 MG TABLET PO ONE (17:04)
[2018-01-26 17:37] LABS: HEMATOCRIT 37.7 % (36.0-47.0); MEAN CORPUSCULAR HEMOGLOBIN 26.3 pg (27.0-33.4); MEAN CORPUSCULAR HGB CONC 31.9 g/dL (32.0-36.0); MEAN CORPUSCULAR VOLUME 82 fl (80-97); PLATELET COUNT 334 10^3/uL (150-450); RED BLOOD COUNT 4.58 10^6/uL (3.72-5.28); RED CELL DISTRIBUTION WIDTH 16.3 % (11.5-14.0); WHITE BLOOD COUNT 13.1 10^3/uL (4.0-10.5)
[2018-01-26 17:43] LABS: INTERNATIONAL RATION (INR) 0.87; PARTIAL THROMBOPLASTIN TIME 25.8 SEC (23.5-35.8); PROTHROMBIN TIME 12.5 SEC (11.4-15.4)
[2018-01-26 17:50] LABS: ANION GAP 11 (5-19); BLOOD UREA NITROGEN 23 mg/dL (7-20); CARBON DIOXIDE 28 mmol/L (22-30); CHLORIDE 97 mmol/L (98-107); CREATINE KINASE 73 U/L (30-135); GLUCOSE 179 mg/dL (75-110); POTASSIUM 4.3 mmol/L (3.6-5.0); SODIUM 136.3 mmol/L (137-145)
[2018-01-26 17:54] LABS: ABSOLUTE LYMPHOCYTES# (MANUAL) 0.8 10^3/uL (0.5-4.7); ABSOLUTE MONOCYTES # (MANUAL) 0.4 10^3/uL (0.1-1.4); ABSOLUTE NEUTROPHILS# (MANUAL) 11.9 10^3/uL (1.7-8.2); BASOPHILS % (MANUAL) 0 % (0-2); EOSINOPHILS % (MANUAL) 0 % (0-6); LYMPHOCYTES % (MANUAL) 6 % (13-45); METAMYELOCYTES % (MANUAL) 1 % (0); MONOCYTES % (MANUAL) 3 % (3-13); SEGMENTED NEUTROPHILS % (MAN) 90 % (42-78); TOTAL CELLS COUNTED 100
[2018-01-26 17:56] LABS: ANISOCYTOSIS 1+; HYPOCHROMASIA SLIGHT; PLATELET COMMENT ADEQUATE; PLATELET GIANT PRESENT
[2018-01-26 18:03] LABS: CREATINE KINASE MB 11.1 ng/mL (<4.55)
[2018-01-26 18:07] LABS: TROPONIN I 1.49 ng/mL
--- NOTE | 2018-01-26 18:55 | PDOC TRANSFER SUMMARY ---
General Admission Date/PCP: 01/21/18 01:25 Admission Date: 01/21/18 Transfer Date: 01/26/18 Accepting Facility: [facility] Accepting Physician: Dr. Perdomo Resuscitation Status: Full Code - Transfer Diagnosis (1) NSTEMI (non-ST elevated myocardial infarction) Is this a current diagnosis for this admission?: Yes Diagnosis Summary: Patient given aspirin, placed on heparin, placed on statin. Contacted [facility] for transfer for cardiac cath. (2) Acute and chronic respiratory failure Is this a current diagnosis for this admission?: Yes Diagnosis Summary: Secondary to COPD exacerbation: Patient's been on breathing treatments, steroids , and Levaquin. (3) Anemia Is this a current diagnosis for this admission?: Yes Diagnosis Summary: H and found to have iron deficiency anemia and placed on iron replacement (4) COPD exacerbation Is this a current diagnosis for this admission?: Yes Diagnosis Summary: Patient on steroids, breathing treatments, and antibiotics. (5) GERD (gastroesophageal reflux disease) Is this a current diagnosis for this admission?: Yes Diagnosis Summary: PPI (6) Tobacco dependence Is this a current diagnosis for this admission?: Yes Diagnosis Summary: Have encouraged patient to discontinue tobacco abuse. (7) DVT prophylaxis Is this a current diagnosis for this admission?: Yes - Transfer Medications Transfer Medications: Current Medications Acetaminophen (Tylenol 325 Mg Tablet) 650 mg PO Q4HP PRN PRN Reason: pain or temp greater than 101F Stop: 02/20/18 00:56 Hydrocodone Bitart/Acetaminophen ([place] 7.5-325 Mg Tablet) 1 tab PO Q6HP PRN PRN Reason: FOR PAIN SCALE 2-4 Stop: 01/28/18 09:47 Last Admin: 01/26/18 12:56 Dose: 1 tab Albuterol/Ipratropium (Duoneb 3 Ml Ampul) 3 ml NEB [id number] PRN PRN Reason: SHORTNESS OF BREATH Stop: 02/20/18 00:56 Albuterol/Ipratropium (Duoneb 3 Ml Ampul) 3 ml NEB RTQ6 LOLI Stop: 02/20/18 01:59 Last Admin: 01/26/18 13:31 Dose: 3 ml Aspirin (Aspirin 81 Mg Chewable Tablet) 324 mg PO DAILY LOLI Stop: 02/26/18 09:59 Atorvastatin Calcium (Lipitor 80 Mg Tablet) 80 mg PO QHS LOLI Stop: 02/26/18 21:59 Ferrous Sulfate (Feosol 325 Mg Tablet) 325 mg PO BIDPCBS LOLI Stop: 02/22/18 17:59 Last Admin: 01/26/18 17:19 Dose: 325 mg Guaifenesin (Mucinex Sr 600 Mg Tablet.Sa) 600 mg PO Q12 LOLI Stop: 02/20/18 09:59 Last Admin: 01/26/18 11:10 Dose: 600 mg Guaifenesin (Robitussin Syrup 200 Mg/10 Ml Ud Cup) 200 mg PO Q4HP PRN PRN Reason: COUGH Stop: 02/20/18 00:56 Heparin Sodium (Porcine) (Heparin Inj 5,000 Units/Ml 1 Ml Syringe) 5,000 unit SUBCUT Q8 LOLI Stop: 02/20/18 05:59 Last Admin: 01/26/18 15:06 Dose: 5,000 unit Heparin Sodium (Porcine) (Heparin Inj 1,000 Unit/Ml 10 Ml Vial) 0 - 12,000 unit IV .BOLUS PER PROTOCOL PRN; Protocol PRN Reason: RESPOND TO aPTT VALUE Stop: 02/25/18 20:01 Heparin Sodium/Dextrose (Heparin Rtu 25,000 Unit/250 Ml D5w Premix) 25,000 unit in 250 mls @ 0 mls/hr IV CONTINUOUS PRN; Protocol; Titrate PRN Reason: THIS MED IS NOT "PRN" Stop: 02/25/18 17:01 Lansoprazole (Prevacid 30 Mg Odt Tablet) 30 mg PO BID@0600,1700 [facility] Stop: 02/20/18 16:59 Last Admin: 01/26/18 17:19 Dose: 30 mg Levofloxacin (Levaquin 750 Mg Tablet) 750 mg PO QHS [facility] Stop: 01/28/18 21:59 Last Admin: 01/25/18 21:44 Dose: 750 mg Methylprednisolone Sodium Succinate (Solu-Medrol Inj/Pf 125 Mg/2 Ml Sdv) 60 mg IV Q12 LOLI Stop: 02/23/18 21:59 Last Admin: 01/26/18 11:10 Dose: 60 mg Sodium Chloride (Saline Flush 2.5 Ml Monoject Prefil Syrin) 2.5 ml IV Q8 LOLI Stop: 02/20/18 05:59 Last Admin: 03/11/18 15:06 Dose: 2.5 ml - Allergies Allergies/Adverse Reactions: amoxicillin trihydrate [From Augmentin] Allergy (Verified 01/13/16 19:58) Potassium Clavulanate * [From Augmentin] Allergy (Verified 01/13/16 19:58) Hospital Course Hospital Course: Patient was admitted to our hospital for COPD exacerbation. Patient had complained of chest tightness at time of admission and EKG was done which was similar to her EKGs on prior visits. Then complained again of chest pain on January 26 and an EKG was done and demonstrated lateral T-wave inversions. Patient's troponin reported back at 1.49. Patient was placed on heparin, aspirin, Lipitor. Call for transfer to facility able to cath was made. Patient was treated for COPD exacerbation here at our facility and placed on steroids antibiotics and breathing treatments. Patient is still wheezing at current time however breathing has improved. His past medical history is significant for coronary artery disease, endarterectomy, and tobacco abuse. Physical Exam Vital Signs: Temp Pulse Resp BP Pulse Ox 98.3 F 90 20 105/63 92 01/26/18 13:00 01/26/18 14:00 01/26/18 13:31 01/26/18 13:00 01/26/18 13:31 Intake & Output 01/25/18 01/26/18 01/27/18 05:59 06:59 06:59 Intake Total Output Total Balance Weight General appearance: PRESENT: no acute distress, well-developed, well-nourished Head exam: PRESENT: atraumatic, normocephalic Eye exam: PRESENT: conjunctiva pink, EOMI. ABSENT: scleral icterus Ear exam: PRESENT: normal external ear exam Mouth exam: PRESENT: moist, tongue midline Neck exam: ABSENT: carotid bruit, JVD, lymphadenopathy, thyromegaly Respiratory exam: PRESENT: accessory muscle use, prolonged expiratory phas, wheezes. ABSENT: rales, rhonchi Cardiovascular exam: PRESENT: RRR. ABSENT: diastolic murmur, rubs, systolic murmur Pulses: PRESENT: normal dorsalis pedis pul Vascular exam: PRESENT: normal capillary refill GI/Abdominal exam: PRESENT: normal bowel sounds, soft. ABSENT: distended, guarding, mass, organolmegaly, rebound, tenderness Rectal exam: PRESENT: deferred Extremities exam: PRESENT: full ROM. ABSENT: calf tenderness, clubbing, pedal edema Neurological exam: PRESENT: alert, awake, oriented to person, oriented to place , oriented to time, oriented to situation, CN II-XII grossly intact. ABSENT: motor sensory deficit Psychiatric exam: PRESENT: appropriate affect, normal mood. ABSENT: homicidal ideation, suicidal ideation Skin exam: PRESENT: dry, intact, warm. ABSENT: cyanosis, rash Results Laboratory Results: 01/26/18 17:10 01/26/18 16:25 01/26/18 01/26/18 16:25 17:10 WBC 13.1 H RBC 4.58 Hgb 12.0 Hct 37.7 MCV 82 MCH 26.3 L MCHC 31.9 L RDW 16.3 H Plt Count 334 Seg Neutrophils % Not Reportable Lymphocytes % Not Reportable Monocytes % Not Reportable Eosinophils % Not Reportable Basophils % Not Reportable Absolute Neutrophils Not Reportable Absolute Lymphocytes Not Reportable Absolute Monocytes Not Reportable Absolute Eosinophils Not Reportable Absolute Basophils Not Reportable Sodium 136.3 L Potassium 4.3 Chloride 97 L Carbon Dioxide 28 Anion Gap 11 BUN 23 H Creatinine 0.79 Est GFR ( Amer) > 60 Est GFR (Non-Af Amer) > 60 Glucose 179 H Calcium 10.0 01/26/18 01/26/18 16:25 17:10 Creatine Kinase 73 CK-MB (CK-2) 11.10 H Troponin I 1.490 Impressions: Chest X-Ray 01/20/18 23:27 IMPRESSION: NO ACUTE RADIOGRAPHIC FINDING IN THE CHEST. Plan Time Spent: Greater than 30 Minutes
[2018-01-26] MEDS ORDERED: HEPARIN SOD (PORCINE) 1,000 UNIT/ML 10 ML VIAL IV PRN (20:02)
[2018-01-26 20:03] VITALS: BP 119/66
[2018-01-26] MEDS: LEVOFLOXACIN 750 MG TABLET PO SCH (21:32)
--- NOTE | 2018-01-26 21:47 | EKG REPORT ---
SEVERITY:- ABNORMAL ECG - SINUS TACHYCARDIA JHONNY, CONSIDER BIATRIAL ABNORMALITIES ABNORMAL T, CONSIDER ISCHEMIA, LATERAL LEADS BORDERLINE PROLONGED QT INTERVAL : Confirmed by: Tonya Escamilla 26-Jan-2018 21:47:07
--- NOTE | 2018-01-26 21:48 | EKG REPORT ---
SEVERITY:- ABNORMAL ECG - SINUS TACHYCARDIA JHONNY, CONSIDER BIATRIAL ABNORMALITIES ABNORMAL T, CONSIDER ISCHEMIA, ANT-LAT LEADS BORDERLINE PROLONGED QT INTERVAL : Confirmed by: Tonya Escamilla 26-Jan-2018 21:47:53
[2018-01-27] MEDS ORDERED: ASPIRIN 81 MG TABLET, CHEWABLE PO SCH (10:00)
[2018-01-27] MEDS ORDERED: ATORVASTATIN CALCIUM 80 MG TABLET PO SCH (22:00)
== END 2018-01-26 22:00 | disposition short-term general hospital (02) | DRG 189 ==
LOC: ER 23:00 → EH 01-21 01:25 → 4S 01-21 18:20 → ICU 01-26 17:57
PROVIDERS: ADMIT Internal Medicine; ATTEND Internal Medicine
DX: J96.21 Acute and chronic respiratory failure with hypoxia (principal); I21.4 Non-ST elevation (NSTEMI) myocardial infarction; J45.901 Unspecified asthma with (acute) exacerbation; J44.1 Chronic obstructive pulmonary disease with (acute) exacerbation; J96.22 Acute and chronic respiratory failure with hypercapnia; D50.9 Iron deficiency anemia, unspecified; K21.9 Gastro-esophageal reflux disease without esophagitis; F17.210 Nicotine dependence, cigarettes, uncomplicated
CPT/HCPCS: 36415; 71045; 80048; 80053; 82550; 82553; 82607; 82728; 82746; 82803; 83540; 83550; 83735; 83880; 84466; 84484; 85025; 85045; 85610; 85730; 93005; 93010; 94640; 94799; 96365; 99285; J1644; J1956; J2930; J3475; J3490; J7512; J7620